=== PATIENT | female | born 1940 | race Caucasian/White ===

== ENCOUNTER 2016-11-09 08:46 | Emergency (ER) | payer OTHER ==
[2016-11-09 08:50] VITALS: BP 128/88; PULSE 86; BMI 27.1
--- NOTE | 2016-11-09 10:03 | PDOC ---
History of Present Illness - General Chief Complaint: Nasal Bleeding Stated Complaint: NOSE BLEED Time Seen by Provider: 11/09/16 08:53 History Source: Patient - History of Present Illness Timing/Duration: reports: this morning Severity: reports: mild Associated Symptoms: reports: nasal congestion. denies: headache Past History - Past Medical History Allergies/Adverse Reactions: Allergies Allergy/AdvReac Type Severity Reaction Status Date / Time Penicillins Allergy Unknown Unverified 11/09/16 08:48 Sulfa (Sulfonamide Allergy Unknown Itching Unverified 11/09/16 08:48 Antibiotics) [Sulfa(Sulfonamide Antibiotics)] Home Medications: Ambulatory Orders Dexlansoprazole [Dexilant] 60 mg PO DAILY 11/09/16 GI Disorders: Yes (gerd) - Immunization History Immunization Up to Date: Yes - Psycho/Social/Smoking Cessation Hx Anxiety: No Suicidal Ideation: No Smoking History: Never smoked Have you smoked in the past 12 months: No Information on smoking cessation initiated: No Hx Alcohol Use: No Drug/Substance Use Hx: No Substance Use Type: None Review of Systems - Review of Systems Constitutional: No: Chills, Fever HEENTM: No: Ear Pain, Throat Pain Respiratory: No: Cough, Shortness of Breath Neurological: No: Headache, Dizziness *Physical Exam - Vital Signs Last Vital Signs Temp Pulse Resp BP Pulse Ox 86 18 128/88 100 11/09/16 08:48 11/09/16 08:48 11/09/16 08:48 11/09/16 08:48 - Physical Exam General Appearance: Yes: Appropriately Dressed. No: Apparent Distress HEENT: positive: Normal Voice, Other (fresh blood in L nares, oropharynx clear) . negative: Scleral Icterus (R), Scleral Icterus (L) Neck: positive: Supple Respiratory/Chest: negative: Respiratory Distress Integumentary: positive: Dry, Warm Neurologic: positive: Fully Oriented, Alert, Normal Mood/Affect Medical Decision Making - Medical Decision Making 11/09/16 10:10 76-year-old female, denies any significant past medical history, here with epistaxis. Patient states she's had "a cold" for about a week and that this a.m. when she blew her nose while on her way to her orthopedics appointment, that she started bleeding suddenly from her left nostril. States bleeding has since resolved with nasal compression and now here for evaluation. Patient well -appearing and stable with fresh blood in left nares but no active bleeding. Patient instructed to hold compression to nasal bridge for 10 minutes and will reassess 11/09/16 10:28 After an hour of observation, there were no epistaxis recurrence. Patient stable for discharge at this time with epistaxis precautions and education on proper epistaxis cessation at home. Also given bacitracin to spply inside of nares 3 times a day for 3 days. Told to return if symptoms recur *DC/Admit/Observation/Transfer Diagnosis at time of Disposition: Epistaxis URI (upper respiratory infection) Qualifiers: URI type: unspecified viral URI Qualified Code(s): J06.9 - Acute upper respiratory infection, unspecified - Discharge Dispostion Disposition: HOME Condition at time of disposition: Improved - Referrals Referrals: Thao Sepulveda MD [Primary Care Provider] - - Patient Instructions Printed Discharge Instructions: Nosebleed Additional Instructions: Apply bacitracin with a cotton tip to inside of the nares bilaterally 3 times a day for the next 3 days. Refrain from blowing or picking your nose. If symptoms reoccur and you are not able to stop bleeding with nasal compression as demonstrated to you in ED, return to the ED
== END 2016-11-09 10:39 | disposition home or self-care (01) ==
LOC: JERFT 08:46
DX: J06.9 Acute upper respiratory infection, unspecified (principal); K21.9 Gastro-esophageal reflux disease without esophagitis
CPT/HCPCS: 99281-25

== ENCOUNTER 2017-07-24 07:25 | Inpatient (IN) | payer OTHER ==
[2017-07-24] MEDS ORDERED: methylPREDNISolone NA SUCC 125 MG/2 ML VIAL IVPUSH ONE (07:41)
--- NOTE | 2017-07-24 07:41 | PDOC ---
History of Present Illness - General Chief Complaint: Tongue Swelling Stated Complaint: MOUTH SWELLING Time Seen by Provider: 07/24/17 07:33 - History of Present Illness Initial Comments: 07/24/17 07:43 Ms. Moreno is a 76 yo female w/ pmh of celiac disease and fibromyalgia who presents with a 2 hour history of tongue tingling and swelling. She reports she started clindamycin 5 days ago for a tooth infection and that she had a root canal yesterday. She is complaining of no other symptoms. The patient denies chest pain, shortness of breath, headache and dizziness. Denies fever, chills, nausea, vomit, diarrhea and constipation. Denies dysuria, frequency, urgency and hematuria. Allergies: Penicillins, sulfa drugs Past History - Past Medical History Allergies/Adverse Reactions: Allergies Allergy/AdvReac Type Severity Reaction Status Date / Time Penicillins Allergy Unknown Verified 07/24/17 08:27 Sulfa (Sulfonamide Allergy Unknown Itching Verified 07/24/17 08:27 Antibiotics) [Sulfa(Sulfonamide Antibiotics)] Home Medications: Ambulatory Orders Clindamycin [Cleocin -] 300 mg PO Q6H 07/24/17 Esomeprazole Magnesium [Nexium 24Hr] 20 mg PO DAILY 07/24/17 COPD: No GI Disorders: Yes (gerd) - Immunization History Immunization Up to Date: Yes - Suicide/Smoking/Psychosocial Hx Smoking History: Never smoked Have you smoked in the past 12 months: No Hx Alcohol Use: No Drug/Substance Use Hx: No Substance Use Type: None Review of Systems - Review of Systems Comments:: 07/24/17 07:45 GENERAL/CONSTITUTIONAL: No fever or chills. No weakness. HEAD, EYES, EARS, NOSE AND THROAT: +Tongue swelling. No change in vision. No ear pain or discharge. No sore throat. CARDIOVASCULAR: No chest pain or shortness of breath RESPIRATORY: No cough, wheezing, or hemoptysis. GASTROINTESTINAL: No nausea, vomiting, diarrhea or constipation. GENITOURINARY: No dysuria, frequency, or change in urination. MUSCULOSKELETAL: No joint or muscle swelling or pain. No neck or back pain. SKIN: No rash NEUROLOGIC: No headache, vertigo, loss of consciousness, or change in strength/ sensation. ENDOCRINE: No increased thirst. No abnormal weight change HEMATOLOGIC/LYMPHATIC: No anemia, easy bleeding, or history of blood clots. ALLERGIC/IMMUNOLOGIC: No hives or skin allergy. *Physical Exam - Vital Signs Last Vital Signs Temp Pulse Resp BP Pulse Ox 97.6 F 85 20 152/77 99 07/24/17 07:28 07/24/17 07:28 07/24/17 07:28 07/24/17 07:28 07/24/17 07:28 - Physical Exam Comments: 07/24/17 07:45 GENERAL: Awake, alert, and fully oriented, in no acute distress HEAD: No signs of trauma, normocephalic, atraumatic EYES: PERRLA, EOMI, sclera anicteric, conjunctiva clear ENT: +Tongue appears swollen on left side. Patient still able to articulate clearly with no difficulty breathing. Auricles normal inspection, hearing grossly normal, nares patent, oropharynx clear without exudates. Moist mucosa NECK: Normal ROM, supple, no lymphadenopathy, JVD, or masses LUNGS: No distress, speaks full sentences, clear to auscultation bilaterally HEART: Regular rate and rhythm, normal S1 and S2, no murmurs, rubs or gallops, peripheral pulses normal and equal bilaterally. ABDOMEN: Soft, nontender, normoactive bowel sounds. No guarding, no rebound. No masses EXTREMITIES: Normal inspection, Normal range of motion, no edema. No clubbing or cyanosis. NEUROLOGICAL: Cranial nerves II through XII grossly intact. Normal speech, normal gait, no focal sensorimotor deficits SKIN: Warm, Dry, normal turgor, no rashes or lesions noted. 07/24/17 08:08 ED Treatment Course - LABORATORY CBC & Chemistry Diagram: 07/24/17 11:02 07/24/17 11:02 Medical Decision Making - Medical Decision Making 07/24/17 11:32 Pt. has angioedema of tongue. On further exam reporting difficulty swallowing. Patient refused FFP as is a protestant. Will admit to ICU for care. 07/24/17 11:39 Discussed pt. w/ PCP. Agrees with admission and would like epinephrin given as well. Will comply. *DC/Admit/Observation/Transfer Diagnosis at time of Disposition: Angioedema Qualifiers: Encounter type: initial encounter Qualified Code(s): T78.3XXA - Angioneurotic edema, initial encounter - Discharge Dispostion Admit: Yes - Referrals Referrals: Thao Sepulveda MD [Primary Care Provider] - - Patient Instructions - Post Discharge Activity
[2017-07-24] MEDS ORDERED: FAMOTIDINE 20 MG/50 ML IVPB 20 MG/50 ML MG IVPB ONE ×2 (07:42→07:45)
[2017-07-24] MEDS ORDERED: methylPREDNISolone NA SUCC 125 MG/2 ML VIAL ONE (07:44)
--- NOTE | 2017-07-24 08:27 | PDOC ---
Attending Attestation - HPI HPI: 07/24/17 08:29 The patient is a 76 year old female with a significant PMH of fibromyalgia and Celiac disease who presents to the emergency department with tongue swelling beginning approximately 2 hours ago. The patient reports she has been taking 150 mg of Clindamycin for a root canal infection which was recently increased to 300 mg about 2 days ago. She reports taking her dose of Clindamycin this morning and subsequently noting left sided tongue swelling shortly after. She reports some difficulty swallowing at presentation. The patient states that she also regularly takes Nexium. Allergies: Penicillins, Sulfonamide antibiotics. Social history: No reported toxic habits. PCP: Dr. Sepulveda - Physicial Exam PE: 07/24/17 08:29 GENERAL: Awake, alert, and fully oriented, in no acute distress HEAD: No signs of trauma EYES: PERRLA, EOMI, sclera anicteric, conjunctiva clear ENT: (+) Edema to the left side of the tongue. No lesions. Uvula midline. Posterior oropharynx clear without exudates and without swelling. Auricles normal inspection, hearing grossly normal, nares patent, Moist mucosa. NECK: Normal ROM, supple, no lymphadenopathy, JVD, or masses LUNGS: Breath sounds equal, clear to auscultation bilaterally. No wheezes, and no crackles HEART: Regular rate and rhythm, normal S1 and S2, no murmurs, rubs or gallops ABDOMEN: Soft, nontender, normoactive bowel sounds. No guarding, no rebound. No masses EXTREMITIES: Normal range of motion, no edema. No clubbing or cyanosis. No cords, erythema, or tenderness NEUROLOGICAL: Cranial nerves II through XII grossly intact. Normal speech. SKIN: Warm, Dry, normal turgor, no rashes or lesions noted. <Scotty Beyer - Last Filed: 07/24/17 08:29> - Resident Resident Name: Gary Vega - ED Attending Attestation I have performed the following: I have examined & evaluated the patient, The case was reviewed & discussed with the resident, I agree w/resident's findings & plan, Exceptions are as noted - Medical Decision Making Pt with angioedema to the left side of the tongue, occurred following increase in clindamycin dose. Will treat with benadryl, steroids, and pepcid. Will monitor airway in ED for 4-6 hrs before deciding on disposition. <Kelli Wesley - Last Filed: 07/24/17 09:50>
[2017-07-24 11:10] LABS: BASOPHIL 0.7 % (0-2.0); EOSINOPHIL 4.3 % (0-4.5); MCH 30.2 pg (25.7-33.7); MEAN CELL VOLUME 91.4 fl (80-96); MEAN PLT VOLUME 7.7 fl (7.5-11.1); PLATELET COUNT 333 K/MM3 (134-434); RDW 13.8 % (11.6-15.6); WHITE BLOOD COUNT 7.1 K/mm3 (4.0-10.0)
[2017-07-24 11:34] LABS: ALBUMIN 3.7 g/dl (3.4-5.0); ANION GAP 7 (8-16); BILIRUBIN,TOTAL 0.3 mg/dL (0.2-1.0); CALCIUM 9.2 mg/dL (8.5-10.1); CO2 30 mmol/L (21-32); CREATININE 0.9 mg/dL (0.55-1.02); GLUCOSE,RANDOM 81 mg/dL (74-106); SGOT/AST 19 U/L (15-37); SGPT/ALT 21 U/L (12-78); TOT PROT 7.2 g/dl (6.4-8.2)
[2017-07-24 11:35] LABS: ALK PHOS 56 U/L (45-117)
[2017-07-24] MEDS ORDERED: EPINEPHrine 1:1,000 0.3 MG/0.3 ML SYR IM ONE (11:35)
[2017-07-24 14:13] VITALS: BMI 28.3
--- NOTE | 2017-07-24 14:39 | CONSULT ---
Consultation: REQUESTING PROVIDER: CONSULT REQUEST: PULM/CC We have been asked to medically evaluate this patient for angioedema. HISTORY OF PRESENT ILLNESS: 76 y/o F with PMH fibromyalgia, GERD, and Celiac disease, who presents to the ED with tingling and erythema of L lateral side of tongue. As per pt, she had a root canal done 2 weeks ago, and completed a 1 week course of clindamycin 150mg qd a week ago. Pt returned to her doctor and was told that she needed a higher dose of medication to clear her gum infection, so her dose of clindamycin was increased to 300mg TID. Pt took her last dose of clinda this morning at 6AM, and thirty minutes later, experienced tingling and swelling on the L lateral side of her tongue. For this reason, pt came to the hospital. Pt had a similar reaction (L sided throat swelling) to cipro a few months prior. She follows with an infrastructure engineer across the street, but does not remember his name. Denies OSWALD, fever, chills, abdominal pain. Pt has an extensive allergy history to guillory, perfumes, scented shampoos. REVIEW OF SYSTEMS: CONSTITUTIONAL: Absent: fever, chills, diaphoresis, generalized weakness, malaise, loss of appetite, weight change HEENT: Absent: rhinorrhea, nasal congestion, throat pain, throat swelling, difficulty swallowing, mouth swelling, ear pain, eye pain, visual changes CARDIOVASCULAR: Absent: chest pain, syncope, palpitations, irregular heart rate, lightheadedness , peripheral edema RESPIRATORY: +mild L sided tongue swelling Absent: cough, shortness of breath, dyspnea with exertion, orthopnea, wheezing, stridor, hemoptysis GASTROINTESTINAL: Absent: abdominal pain, abdominal distension, nausea, vomiting, diarrhea, constipation, melena, hematochezia GENITOURINARY: Absent: dysuria, frequency, urgency, hesitancy, hematuria, flank pain, genital pain MUSCULOSKELETAL: Absent: myalgia, arthralgia, joint swelling, back pain, neck pain SKIN: Absent: rash, itching, pallor HEMATOLOGIC/IMMUNOLOGIC: Absent: easy bleeding, easy bruising, lymphadenopathy, frequent infections ENDOCRINE: Absent: unexplained weight gain, unexplained weight loss, heat intolerance, cold intolerance NEUROLOGIC: Absent: headache, focal weakness or paresthesias, dizziness, unsteady gait, seizure, mental status changes, bladder or bowel incontinence PSYCHIATRIC: Absent: anxiety, depression, suicidal or homicidal ideation, hallucinations. PHYSICAL EXAMINATION Vital Signs - 24 hr 07/24/17 07/24/17 07/24/17 07:28 08:24 12:21 Temperature 97.6 F Pulse Rate 85 Pulse Rate [ 77 106 H Apical] Respiratory 20 14 18 Rate Blood Pressure 152/77 Blood Pressure 145/92 152/81 [Right Arm] O2 Sat by Pulse 99 Oximetry (%) 07/24/17 07/24/17 07/24/17 12:55 12:57 13:20 Temperature 97.8 F 97.8 F 97.7 F Pulse Rate 95 H Pulse Rate [ 106 H Apical] Respiratory 15 24 Rate Blood Pressure 113/67 Blood Pressure 124/71 [Right Arm] O2 Sat by Pulse Oximetry (%) 07/24/17 14:13 Temperature Pulse Rate 95 H Pulse Rate [ Apical] Respiratory 22 Rate Blood Pressure 99/58 Blood Pressure [Right Arm] O2 Sat by Pulse 95 Oximetry (%) GENERAL: Awake, alert, and fully oriented, in no acute distress. on 2L NC 02 HEAD: Normal with no signs of trauma. EYES: Pupils equal, round and reactive to light, extraocular movements intact, sclera anicteric, conjunctiva clear. NECK: Normal range of motion, supple without lymphadenopathy, JVD, or masses. LUNGS: Breath sounds equal, clear to auscultation bilaterally. No wheezes, and no crackles. No accessory muscle use. HEART: Regular rate and rhythm, normal S1 and S2 without murmur, rub or gallop. ABDOMEN: Soft, nontender, not distended, normoactive bowel sounds, no guarding, no rebound, no masses. LOWER EXTREMITIES: 2+ posterior tibial pulses, warm, well-perfused. No calf tenderness. No peripheral edema. NEUROLOGICAL: Cranial nerves II-XII intact. Laboratory Results - last 24 hr 07/24/17 07/24/17 07/24/17 11:02 11:02 11:02 WBC 7.1 RBC 4.15 Hgb 12.5 Hct 37.9 MCV 91.4 MCH 30.2 MCHC 33.0 RDW 13.8 Plt Count 333 MPV 7.7 Neutrophils % 48.0 Lymphocytes % 37.6 Monocytes % 9.4 Eosinophils % 4.3 Basophils % 0.7 Sodium 140 Potassium 4.5 Chloride 103 Carbon Dioxide 30 Anion Gap 7 L BUN 19 H Creatinine 0.9 Creat Clearance w eGFR > 60 Random Glucose 81 Calcium 9.2 Total Bilirubin 0.3 AST 19 ALT 21 Alkaline Phosphatase 56 Total Protein 7.2 Albumin 3.7 Blood Type B POSITIVE Antibody Screen Negative ASSESSMENT/PLAN: 76 y/o F with PMH fibromyalgia, GERD, and Celiac disease, who presents to the ED with tingling and erythema of L lateral side of tongue x this morning. Pt admitted to ICU for continued management. #IMMUNO Angioedema 2/2 clinda allergic reaction -Received Benadryl, epipen, solumedrol 125, Famotidine in ED -Pt currently denies SOB, did not appreciate lateral tongue edema -Placed on solumedrol 40mg IVPB BID prophylactically, Benadryl and pepcid -Most likely 2/2 abx reaction to clindamycin, had similar rxn to cipro in past -F/u speech & swallow consult, to determine pt's diet, avoid aspiration #Prophylaxis -DVT: early ambulation #F/E/N -Monitor electrolytes -Wait for speech & swallow, then decide diet-aspiration precautions #Disposition -Continued management in ICU, for possible transfer tomorrow if continues to improve Dispo: We will continue to follow the patient. Thank you for this consultative opportunity. Visit type - Emergency Visit Emergency Visit: No - New Patient This patient is new to me today: Yes Date on this admission: 07/24/17 - Critical Care Critical Care patient: Yes Total Critical Care Time (in minutes): 42 Critical Care Statement: The care of this patient involved high complexity decision making to prevent further life threatening deterioration of the patient 's condition and/or to evaluate & treat vital organ system(s) failure or risk of failure.
--- NOTE | 2017-07-24 15:28 | CONSULT ---
Admitting History and Physical - Admission History of Present Illness: 76 y/o F with PMH fibromyalgia, GERD, and Celiac disease, who presents to the ED with tingling and erythema of L lateral side of tongue x this morning. Pt admitted to ICU for continued management. History Source: Patient, Medical Record Limitations to Obtaining History: No Limitations - Smoking History Smoking history: Never smoked Have you smoked in the past 12 months: No - Alcohol/Substance Use Hx Alcohol Use: No History - Admission Reason For Visit: ANGIOEDEMA - Diagnostics X-ray: Report Reviewed - General Mental Status: Alert and Oriented, Awake and Alert, Able to Follow Commands Attention: Intact Ability to Follow Directions: Excellent Head/Neck Control: WFL - Hearing Hearing: Normal Speech Evaluation - Communication Primary Language: AMHARIC Communication: Yes: Within Normal Limits Oral Expression Ability: Yes: No Impairment - Speech Production Able to Make Needs Known: Yes: WNL Intelligibility: Yes: WNL - Speech Characteristics Voice Loudness: Normal Voice Pitch: Yes: Normal Voice Phonatory-based Quality: Yes: Normal Speech Pattern: Normal Speech Clarity: < 100% Nasal Resonance: Normal Articulation: Yes: Precise Rate of Speech: Intact - Language/Auditory Comprehension Follows: Yes: Complex Commands - Language/Verbal Expression Able to Respond to Simple Queries: Yes: WNL Able to Communicate Wants and Needs: Yes: WNL Functional Communication Status: Yes: WNL Attention: Yes: Intact - 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 Memory: Yes: WNL Short Term Memory: Yes: WNL - Swallow Evaluation/Bedside Assessment Current Nutritional Intake: NPO Oral Secretions: Yes: WFL Dentition: Yes: Adequate Facial Symmetry at Rest: Symmetrical Facial Symmetry on Retraction: Symmetrical Facial Movement: Controlled Sensation: Normal Against Resistance Opening: Normal Against Resistance Closing: Normal Pucker Lips: Normal Smile: Normal Lingual Movement: Normal, Symmetric Lingual Speed of Movement: Normal Lingual Movement Strgth Against Opposition: Normal Lingual Movement Characteristics: Normal Velopharyngeal Movement: Normal Laryngeal Elevation: WFL Laryngeal Movement: Able to Palpate Rate of Intake: WFL Bolus Size: WFL Labial Seal: WFL Chewing: WFL Oral Prep Time: WFL A-P Transit: WFL Pocketing: None Timing of Swallow: WFL Coughing/Throat Clear: No Change in Voice: No Recommendations - Speech Evaluation, Impression/Plan Impression: Left tongue swelling overtly resolved. Speech and swallowing back to baseline. Pt reports cough from reflux. She is on a strictly Gluten-free ( Celiac disease)diet with GERD precautions. - Dysphagia Impressions/Plan Swallowing Skills: WFL Recommendations: Other (HOB elevated for 1 hour after meals and avoid PO intake for 2-3 hours before bedtime. Monitor PO tolerance.) - Recommendations Diet Consistency: Regular (Gluten-free. Avoid caffiene, carbonation, citrus, tomatoes, onions, peppers.) Liquids: Thin Liquids
[2017-07-24] MEDS ORDERED: diphenhydrAMINE HCL 25 MG CAPSULE (FP) PO PRN (15:34)
[2017-07-24] MEDS: methylPREDNISolone NA SUCC 125 MG/2 ML VIAL IVPUSH SCH ×2 (16:24→21:42)
[2017-07-24] MEDS: MUPIROCIN 2% TOPICAL OINTMENT FOR DECOLONIZATION NS SCH (21:42)
--- NOTE | 2017-07-24 21:56 | CONSULT ---
Consult Consult Specialty:: Pulm/CCM Reason for Consultation:: angioedema - History of Present Illness Chief Complaint: tongue swelling History of Present Illness: 76 yo woman PMH: GERD, fibromyalgia and celiac disease who presented to ED with acute onset tongue swelling in the setting of recent clindamycin dose. Patient had been in her usual state of health until ~ 1 week ago she developed tooth pain and had a root canal. Post procedure she had significant gingivitis and was placed on clindamycin 150mg qid for 7 days. She still has significant irritation of the gums and her dentist increased the dose to clinda 300mg qid. The morning of admission she took her dose of medication and developed acute left sided tongue swelling and presented to ED. She denies CP/SOB/OSWALD/blurry vision/wheeze/rash/sick contact. In ED she was treated with steroids/H2B/ benadryl and EPI pen. Patient admitted to ICU for observation of airway. In ICU patient awake, alert without distress. On exam no swelling noted. Patient report to be back at baseline. - History Source History Provided By: Patient Limitations to Obtaining History: No Limitations - Past Medical History Gastrointestinal: Yes: GERD, Other (celiac disease ) Heme/Onc: Yes: Current Chemotherapy Rheumatology: Yes: Fibromyalgia - Alcohol/Substance Use Hx Alcohol Use: No - Smoking History Smoking history: Never smoked Have you smoked in the past 12 months: No Home Medications - Allergies Allergies/Adverse Reactions: Allergies Allergy/AdvReac Type Severity Reaction Status Date / Time clindamycin Allergy Severe Swelling Verified 07/24/17 21:29 Penicillins Allergy Unknown Verified 07/24/17 08:27 Sulfa (Sulfonamide Allergy Unknown Itching Verified 07/24/17 08:27 Antibiotics) [Sulfa(Sulfonamide Antibiotics)] - Home Medications Home Medications: Ambulatory Orders Clindamycin [Cleocin -] 300 mg PO Q6H 07/24/17 Esomeprazole Magnesium [Nexium 24Hr] 20 mg PO DAILY 07/24/17 Family Disease History - Family Disease History Family History: Unremarkable Review of Systems - Review of Systems Constitutional: reports: No Symptoms HENT: reports: Difficult Swallowing, Mouth Swelling Cardiovascular: reports: No Symptoms Respiratory: reports: No Symptoms Gastrointestinal: reports: No Symptoms Physical Exam Vital Signs: Vital Signs Temperature 98.9 F 07/24/17 18:00 Pulse Rate 83 07/24/17 20:00 Respiratory Rate 16 11/22/17 20:00 Blood Pressure 104/61 07/24/17 20:00 O2 Sat by Pulse Oximetry (%) 92 L 07/24/17 19:58 Current Medications Chlorhexidine Gluconate (Hibiclens For Decolonization -) 1 applic TP HS SARA Last Admin: 07/24/17 21:42 Dose: 1 applic Diphenhydramine HCl (Benadryl -) 25 mg PO HS PRN PRN Reason: INSOMNIA Last Admin: 07/24/17 21:42 Dose: 25 mg Famotidine/Sodium Chloride (Pepcid 20 Mg Premixed Ivpb -) 20 mg in 50 mls @ 100 mls/hr IVPB DAILY SARA Methylprednisolone Sodium Succinate (Solu-Medrol -) 40 mg IVPUSH BID SARA Last Admin: 07/24/17 21:42 Dose: 40 mg Mupirocin (Bactroban Ointment (For Decolonization) -) 1 applic NS BID SARA Stop: 07/29/17 21:59 Last Admin: 07/24/17 21:42 Dose: 1 applic Constitutional: Yes: Calm Eyes: Yes: EOM Intact HENT: Yes: Normocephalic Neck: Yes: Trachea Midline Cardiovascular: Yes: Regular Rate and Rhythm Respiratory: Yes: CTA Bilaterally Gastrointestinal: Yes: Normal Bowel Sounds, Soft Edema: No Neurological: Yes: Alert, Oriented Labs: CBC, BMP 07/24/17 11:02 07/24/17 11:02 Imaging - Results Chest X-ray: Report Reviewed, Image Reviewed Problem List - Problems (1) Angioedema Code(s): T78.3XXA - ANGIONEUROTIC EDEMA, INITIAL ENCOUNTER Qualifiers: Encounter type: initial encounter Qualified Code(s): T78.3XXA - Angioneurotic edema, initial encounter Assessment/Plan a/p: 76 yo woman with acute tongue edema after clindamycin dose c/w angioedema/ allergic reaction -cont steroids/H2B/H1B -incentive chente -DVT prophylaxis Boerem ACNP Pulm/CCM CCT: 35m
[2017-07-24] MEDS ORDERED: CHLORHEXIDINE GLUCONATE 4% CLEANSER FOR DECOLONIZATION TP SCH (22:00)
[2017-07-25 06:34] VITALS: TEMP 98.7
[2017-07-25 07:07] LABS: BASOPHIL 0.1 % (0-2.0); MCH 30.3 pg (25.7-33.7); MCHC 33.5 g/dl (32.0-36.0); MEAN CELL VOLUME 90.5 fl (80-96); MEAN PLT VOLUME 7.8 fl (7.5-11.1); NEUTROPHILS 88.1 % (42.8-82.8); PLATELET COUNT 336 K/MM3 (134-434); RDW 13.9 % (11.6-15.6); WHITE BLOOD COUNT 18.5 K/mm3 (4.0-10.0)
[2017-07-25 07:08] LABS: ANION GAP 9 (8-16); CALCIUM 9.1 mg/dL (8.5-10.1); CO2 26 mmol/L (21-32); GLUCOSE,RANDOM 136 mg/dL (74-106); MAGNESIUM 2.2 mg/dL (1.8-2.4); PHOSPHOROUS 3.8 mg/dL (2.5-4.9)
[2017-07-25 09:43] VITALS: BP 115/95; PULSE 88
[2017-07-25] MEDS ORDERED: FAMOTIDINE 20 MG/50 ML IVPB 20 MG/50 ML MG IVPB SCH (10:00)
[2017-07-25] MEDS ORDERED: ACETAMINOPHEN 325 MG TABLET (FP) ONE (11:13)
--- NOTE | 2017-07-25 11:17 | DS ---
Physical Examination Vital Signs: Vital Signs Temperature 98.7 F 07/25/17 06:00 Pulse Rate 88 07/25/17 08:00 Respiratory Rate 21 07/25/17 09:00 Blood Pressure 115/95 07/25/17 08:00 O2 Sat by Pulse Oximetry (%) 94 L 07/25/17 09:00 Findings/Remarks: Admitted with angio edema Feels better ,no complaints Constitutional: Yes: No Distress Eyes: Yes: WNL HENT: Yes: WNL Neck: Yes: WNL Cardiovascular: Yes: WNL Respiratory: Yes: WNL Gastrointestinal: Yes: WNL ...Rectal Exam: Yes: Deferred Renal/: Yes: WNL Breast(s): Yes: WNL Edema: No Neurological: Yes: Alert Labs: CBC, BMP 07/25/17 05:35 07/25/17 05:35 Discharge Summary Reason For Visit: ANGIOEDEMA Current Active Problems Angioedema (Acute) - Instructions Referrals: Thao Sepulveda MD [Primary Care Provider] - - Home Medications Comprehensive Discharge Medication List: Ambulatory Orders Clindamycin [Cleocin -] 300 mg PO Q6H 07/24/17 Esomeprazole Magnesium [Nexium 24Hr] 20 mg PO DAILY 07/24/17
--- NOTE | 2017-07-25 11:38 | HP ---
DATE OF ADMISSION: 07/24/2017 This is a 76-year-old female, known to me for many years, diagnosed to have fibromyalgia, celiac disease, came to the emergency room with swelling of the tongue and difficulty in breathing. She was taking clindamycin for her tooth infection. In the emergency room, she got Claritin, there was no relief, after epinephrine was given. After getting epinephrine, she had relief for her symptoms. Then she was admitted to the ICU. I saw her in the ICU. PHYSICAL EXAMINATION: Vital Signs: BP 130/80, pulse 72, respiration 20, temperature 98. HEENT: Unremarkable. Face: Minimal swelling, angioedema on the left side. Lungs: Clear. Heart: S1, S2 normal. No S3, S4. Abdomen: Soft, nontender. Extremities: No edema. Neurological: Grossly normal. Labs are okay. X-ray of chest okay. EKG: Normal sinus rhythm. IMPRESSION: Angioedema, allergic reaction, probably allergic to clindamycin. Patient is admitted to ICU for observation. Vicente [id number]
[2017-07-25] MEDS: MUPIROCIN 2% TOPICAL OINTMENT FOR DECOLONIZATION NS SCH (11:39)
--- NOTE | 2017-07-25 12:37 | PN ---
Teaching Attending Note Name of Resident: Claudine Gee ATTENDING PHYSICIAN STATEMENT I saw and evaluated the patient. I reviewed the resident's note and discussed the case with the resident. I agree with the resident's findings and plan as documented. SUBJECTIVE: Feels overall better today. Feels that her tongue is back to baseline. No rash, itching, drooling, etc. Intake & Output 07/22/17 07/23/17 07/24/17 07/25/17 23:59 23:59 23:59 23:59 Intake Total 480 Balance 480 Weight 145 lb Last Vital Signs Temp Pulse Resp BP Pulse Ox 98.7 F 88 21 115/95 94 L 07/25/17 06:00 07/25/17 08:00 07/25/17 09:00 07/25/17 08:00 07/25/17 09:00 Constitutional: Yes: Awake and alert, NAD Eyes: Yes: EOM Intact HENT: Yes: Normocephalic Neck: Yes: Trachea Midline Cardiovascular: Yes: Regular Rate and Rhythm Respiratory: Yes: CTA Bilaterally Gastrointestinal: Yes: Normal Bowel Sounds, Soft Edema: No Neurological: Yes: Alert, Oriented Labs: Laboratory Results - last 24 hr 07/24/17 07/25/17 07/25/17 14:25 05:35 05:35 WBC 18.5 H D RBC 3.93 Hgb 11.9 Hct 35.6 MCV 90.5 MCH 30.3 MCHC 33.5 RDW 13.9 Plt Count 336 MPV 7.8 Neutrophils % 88.1 H D Lymphocytes % 8.5 D Monocytes % 3.3 L Eosinophils % 0.0 D Basophils % 0.1 Sodium 139 Potassium 4.7 Chloride 104 Carbon Dioxide 26 Anion Gap 9 BUN 23 H D Creatinine 1.0 Random Glucose 136 H D Calcium 9.1 Phosphorus 3.8 Magnesium 2.2 Blood Type B POSITIVE - Problems (1) Angioedema Code(s): T78.3XXA - ANGIONEUROTIC EDEMA, INITIAL ENCOUNTER Qualifiers: Encounter type: initial encounter Qualified Code(s): T78.3XXA - Angioneurotic edema, initial encounter Assessment/Plan Overall better -> D/C planning Dr Fontenot
--- NOTE | 2017-07-25 12:38 | PN ---
Physical Exam: SUBJECTIVE: Patient seen and examined at bedside. 24 hr events -None, pt started back on diet -No issues Today -Pt discharged home -no issues, denies SOB or angioedema, rash, drooling, etc. OBJECTIVE: Vital Signs Period Temp Pulse Resp BP Sys/Sanz Pulse Ox Last 24 Hr 97.7 F-99.1 F 66-106 13-24 90-124/55-95 92-97 GENERAL: The patient is awake, alert, and fully oriented, in no acute distress. HEAD: Normal with no signs of trauma. EYES: PERRL, extraocular movements intact, sclera anicteric, conjunctiva clear. ENT: Ears normal, nares patent, oropharynx clear without exudates, moist mucous membranes. NECK: Trachea midline, supple. LUNGS: Breath sounds equal, clear to auscultation bilaterally, no wheezes, no crackles, no accessory muscle use. HEART: Regular rate and rhythm, S1, S2 without murmur, rub or gallop. ABDOMEN: Soft, nontender, nondistended, normoactive bowel sounds, no guarding, no rebound EXTREMITIES: 2+ posterior tibial pulses, warm, well-perfused, no edema. NEUROLOGICAL: Cranial nerves II through XII grossly intact. Laboratory Results - last 24 hr 07/24/17 07/25/17 07/25/17 14:25 05:35 05:35 WBC 18.5 H D RBC 3.93 Hgb 11.9 Hct 35.6 MCV 90.5 MCH 30.3 MCHC 33.5 RDW 13.9 Plt Count 336 MPV 7.8 Neutrophils % 88.1 H D Lymphocytes % 8.5 D Monocytes % 3.3 L Eosinophils % 0.0 D Basophils % 0.1 Sodium 139 Potassium 4.7 Chloride 104 Carbon Dioxide 26 Anion Gap 9 BUN 23 H D Creatinine 1.0 Random Glucose 136 H D Calcium 9.1 Phosphorus 3.8 Magnesium 2.2 Blood Type B POSITIVE ASSESSMENT/PLAN: 76 y/o F with PMH fibromyalgia, GERD, and Celiac disease, who presents to the ED with tingling and erythema of L lateral side of tongue x this morning. Pt admitted to ICU for continued management. #IMMUNO Angioedema 2/2 clinda allergic reaction -Received Benadryl, epipen, solumedrol 125, Famotidine in ED -Was on solumedrol 40mg IVPB BID prophylactically, Benadryl and pepcid while in unit -today no complaints, denies SOB, drooling, rash, etc. #Disposition -has been d/c home -will F/u with Dr. Milton Visit type - Emergency Visit Emergency Visit: No - New Patient This patient is new to me today: No - Critical Care Critical Care patient: Yes Total Critical Care Time (in minutes): 30 Critical Care Statement: The care of this patient involved high complexity decision making to prevent further life threatening deterioration of the patient 's condition and/or to evaluate & treat vital organ system(s) failure or risk of failure.
--- NOTE | 2017-07-25 21:43 | EKG ---
Test Reason : Blood Pressure : / mmHG Vent. Rate : 090 BPM Atrial Rate : 090 BPM P-R Int : 158 ms QRS Dur : 102 ms QT Int : 358 ms P-R-T Axes : 060 -46 058 degrees QTc Int : 437 ms NORMAL SINUS RHYTHM INCOMPLETE RIGHT BUNDLE BRANCH BLOCK LEFT ANTERIOR FASCICULAR BLOCK POSSIBLE ANTEROLATERAL INFARCT , AGE UNDETERMINED ABNORMAL ECG WHEN COMPARED WITH ECG OF 14-JAN-2006 09:44, INCOMPLETE RIGHT BUNDLE BRANCH BLOCK IS NOW PRESENT BORDERLINE CRITERIA FOR ANTERIOR INFARCT ARE NOW PRESENT BORDERLINE CRITERIA FOR ANTEROLATERAL INFARCT ARE NOW PRESENT Confirmed by ABY CUENCA MD ([id number]) on 07/25/2017 9:43:29 PM Referred By: Confirmed By:ABY CUENCA MD
== END 2017-07-25 12:23 | disposition home or self-care (01) | DRG 916 ==
LOC: JER 07:25 → JERBED 11:59 → JICU 13:22
PROVIDERS: ADMIT Internal Medicine; ATTEND Internal Medicine
DX: T78.3XXA Angioneurotic edema, initial encounter (principal); K21.9 Gastro-esophageal reflux disease without esophagitis; M79.7 Fibromyalgia; K90.0 Celiac disease; T36.8X5A Adverse effect of other systemic antibiotics, initial encounter
CPT/HCPCS: 36415; 71010-TC; 80048; 80053; 83735; 84100; 85025; 86850; 86900; 86901; 93005; 93010; 99284-25

== ENCOUNTER 2017-07-28 09:37 | Emergency (ER) | payer OTHER ==
[2017-07-28 09:48] VITALS: BP 142/81; PULSE 79; TEMP 97.7; BMI 26.5
[2017-07-28] MEDS ORDERED: DEXAMETHASONE SOD PHOSPHATE 10 MG/1 ML VIAL IM ONE (10:42)
[2017-07-28] MEDS ORDERED: RANITIDINE HCL 150 MG TABLET (FP) PO ONE (10:42)
[2017-07-28] MEDS ORDERED: DEXAMETHASONE SOD PHOSPHATE 10 MG/1 ML VIAL ONE (10:44)
[2017-07-28] MEDS ORDERED: RANITIDINE HCL 150 MG TABLET (FP) ONE (10:44)
--- NOTE | 2017-07-28 10:48 | PDOC ---
History of Present Illness - General Chief Complaint: Allergic Reaction Stated Complaint: ALLERGIC REACTION Time Seen by Provider: 07/28/17 10:13 History Source: Patient Exam Limitations: No Limitations - History of Present Illness Initial Comments: 07/28/17 10:42 Patient was discharged 3 days ago status post ICU admission for angioedema/ anaphylaxis from clindamycin. States received multiple medications including steroids and epinephrine with resolution. States this morning had some dental issue, used some tincture of iodine and fluconazole spray and had a recurrence of swelling to the left side of her face and nose. Patient denies tongue swelling, breathing problems, any airway issue and is not nearly severe as most recent incident, but was concerned about facial swelling. States was prescribed EpiPen but did not use. Denies fever, ear or throat pain, any shortness of breath or cough. Timing/Duration: reports: just prior to arrival Severity: reports: moderate Associated Symptoms: reports: nasal congestion. denies: cough, fever/chills, headache Past History - Travel Traveled outside of the country in the last 30 days: No Close contact w/someone who was outside of country & ill: No - Past Medical History Allergies/Adverse Reactions: Allergies Allergy/AdvReac Type Severity Reaction Status Date / Time clindamycin Allergy Severe Swelling Verified 07/28/17 09:43 Penicillins Allergy Unknown Verified 07/28/17 09:43 Sulfa (Sulfonamide Allergy Unknown Itching Verified 07/28/17 09:43 Antibiotics) [Sulfa(Sulfonamide Antibiotics)] Home Medications: Ambulatory Orders NK [No Known Home Medication] 07/28/17 COPD: No GI Disorders: Yes (gerd) - Immunization History Immunization Up to Date: Yes - Suicide/Smoking/Psychosocial Hx Smoking History: Never smoked Have you smoked in the past 12 months: No Information on smoking cessation initiated: No Hx Alcohol Use: No Drug/Substance Use Hx: No Substance Use Type: None Hx Substance Use Treatment: No Review of Systems - Review of Systems Able to Perform ROS?: Yes Is the patient limited [place]ian proficient: Yes Constitutional: Yes: Symptoms Reported, See HPI, Malaise. No: Fever HEENTM: Yes: Symptoms Reported, See HPI, Nose Congestion, Mouth Swelling, Other (facial swelling/ left lip/ naspolabial fold ). No: Difficulty Swallowing Respiratory: Yes: See HPI. No: Symptoms reported, Cough, Shortness of Breath, Stridor, Wheezing Integumentary: Yes: Symptoms Reported Neurological: Yes: Symptoms reported All Other Systems: Reviewed and Negative *Physical Exam - Vital Signs Last Vital Signs Temp Pulse Resp BP Pulse Ox 97.7 F 79 16 142/81 99 07/28/17 09:44 07/28/17 09:44 07/28/17 09:44 07/28/17 09:44 07/28/17 09:44 - Physical Exam General Appearance: Yes: Nourished, Appropriately Dressed, Apparent Distress, Mild Distress HEENT: positive: CATINA, TMs Normal, Pharynx Normal, Other (swelling to left upper lip/ extending into nasal crease/cheek. ). negative: Muffled/Hoarse voice (no sqwellign to tongue/ pharynx/ airway patent), Tonsillar Exudate, Nasal Congestion, Rhinorrhea, Sinus Tenderness Neck: positive: Supple. negative: Tender, Lymphadenopathy (R), Lymphadenopathy (L) Respiratory/Chest: positive: Lungs Clear, Normal Breath Sounds. negative: Respiratory Distress, Stridor, Wheezing Cardiovascular: positive: Regular Rhythm Gastrointestinal/Abdominal: positive: Normal Bowel Sounds, Soft. 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 Will observe for resolution/. Medical Decision Making - Medical Decision Making 07/28/17 12:05 Patient states feels much improved, swelling to face lessened although is still present. Airway is clear and breathing is unlabored. Is ready for discharge *DC/Admit/Observation/Transfer Diagnosis at time of Disposition: Angioedema Qualifiers: Encounter type: subsequent encounter Qualified Code(s): T78.3XXD - Angioneurotic edema, subsequent encounter - Discharge Dispostion Disposition: HOME Condition at time of disposition: Stable Admit: No - Referrals Referrals: Thao Sepulveda MD [Primary Care Provider] - Venancio Watson MD [Staff Physician] - - Patient Instructions Additional Instructions: Rest, drink lots of fluids: Teas, water, soups Saltwater gargles. Consider humidifier in room at night Steamy showers/seem to face break up mucus Avoid contact with allergens, exposure to pollens, close windows on a windy day Lots of handwashing and good hygiene Continue antihistamines daily until pollen season is over; Zyrtec, Claritin, Nika during the daytime and Benadryl at nighttime as will make sleepy Tylenol or Motrin for fever and pain Continue Zantac, Pepcid, or Tagamet 2 tablets every 12 hours for the next 2 days Prednisone 40 mg daily for the next 4 days Followup with private physician in one to 2 days Consider following up with an manager audio/battery mechanic for skin testing and possible allergy shots Return to emergency department for worsened symptoms, fevers, dehydration - Post Discharge Activity Forms/Work/School Notes: Back to Work
== END 2017-07-28 12:27 | disposition home or self-care (01) ==
LOC: JERFT 09:37
PROC: 3E0233Z Introduction of Anti-inflammatory into Muscle, Percutaneous Approach (ICD-10-PCS; principal; 2017-07-28)
DX: T78.3XXA Angioneurotic edema, initial encounter (principal); T78.49XA Other allergy, initial encounter
CPT/HCPCS: 96372; 99281-25

== ENCOUNTER 2017-08-26 05:15 | Emergency (ER) | payer OTHER ==
[2017-08-26] MEDS ORDERED: methylPREDNISolone NA SUCC 125 MG/2 ML VIAL IVPUSH ONE (07:26)
--- NOTE | 2017-08-26 07:26 | PDOC ---
*Physical Exam - Vital Signs Last Vital Signs Temp Pulse Resp BP Pulse Ox 97.9 F 77 19 148/86 98 08/26/17 07:00 08/26/17 07:00 08/26/17 07:00 08/26/17 07:00 08/26/17 07:00 ED Treatment Course - LABORATORY CBC & Chemistry Diagram: 08/26/17 08:09 08/26/17 08:09 Medical Decision Making - Medical Decision Making 08/26/17 10:19 Pt reassessed. Throat is normal in appearance, uvula midline. No rashes or oral lesions. Stable for DC home. *DC/Admit/Observation/Transfer Diagnosis at time of Disposition: Allergic reaction - Discharge Dispostion Disposition: HOME Condition at time of disposition: Improved Admit: No - Prescriptions Prescriptions: Prednisone [Deltasone -] 40 mg PO DAILY #8 tablet - Referrals Referrals: Thao Sepulveda MD [Primary Care Provider] - - Patient Instructions Printed Discharge Instructions: DI for General Allergic Reactions - Post Discharge Activity
[2017-08-26 07:27] VITALS: PULSE 77; TEMP 97.9; BMI 26.2
--- NOTE | 2017-08-26 07:27 | PDOC ---
History of Present Illness - General Chief Complaint: Dysphagia Stated Complaint: DIFFICULTY SWALLOWING (LUMP) Time Seen by Provider: 08/26/17 06:28 - History of Present Illness Initial Comments: 08/26/17 07:51 "The patient is a 76 year old female, with a significant past medical history of fibromyalgia and celiac disease, who presents to the emergency department with sore throat and "lump in throat". The patient states that upon waking up this morning she experienced trouble swallowing. She reports associated symptoms of nasal congestion and cold-like symptoms that have been persistent for approx. one week. Pt states that she has been having intermittent allergic reactions that typically involve swelling of her face or tongue. She has seen an childbirth educator, but they have not been able to determine the cause of her reactions. Pt was previously admitted to ICU for angioedema/anaphylaxis from clindamycin. Pt currently denies any SOB, denies tongue swelling, denies voice changes. She denies recent fevers, chills, headache or dizziness. She denies recent nausea, vomit, diarrhea or constipation. She denies recent dysuria, frequency, urgency or hematuria. She denies recent chest pain or shortness of breath. Allergies: See Nursing notes. Primary Care Physician: Dr. Sepulveda " Past History - Past Medical History Allergies/Adverse Reactions: Allergies Allergy/AdvReac Type Severity Reaction Status Date / Time clindamycin Allergy Severe Swelling Verified 08/26/17 07:08 Penicillins Allergy Unknown Verified 08/26/17 07:08 Sulfa (Sulfonamide Allergy Unknown Itching Verified 08/26/17 07:08 Antibiotics) [Sulfa(Sulfonamide Antibiotics)] Home Medications: Ambulatory Orders Prednisone [Deltasone] 20 mg PO BID #8 tablet 07/28/17 COPD: No GI Disorders: Yes (gerd) - Immunization History Immunization Up to Date: Yes - Suicide/Smoking/Psychosocial Hx Smoking History: Never smoked Have you smoked in the past 12 months: No Information on smoking cessation initiated: No Hx Alcohol Use: No Drug/Substance Use Hx: No Substance Use Type: None Hx Substance Use Treatment: No Review of Systems - Review of Systems Comments:: 08/26/17 07:53 "GENERAL/CONSTITUTIONAL: No fever or chills. No weakness. HEAD, EYES, EARS, NOSE AND THROAT: +Nasal congestion, lump in throat. No change in vision. No ear pain or discharge. No sore throat. CARDIOVASCULAR: No chest pain or shortness of breath. RESPIRATORY: No cough, wheezing, or hemoptysis. GASTROINTESTINAL: No nausea, vomiting, diarrhea or constipation. GENITOURINARY: No dysuria, frequency, or change in urination. MUSCULOSKELETAL: No joint or muscle swelling or pain. No neck or back pain. SKIN: No rash NEUROLOGIC: No headache, vertigo, loss of consciousness, or change in strength/ sensation. ENDOCRINE: No increased thirst. No abnormal weight change. HEMATOLOGIC/LYMPHATIC: No anemia, easy bleeding, or history of blood clots. ALLERGIC/IMMUNOLOGIC: No hives or skin allergy. " *Physical Exam - Vital Signs Last Vital Signs Temp Pulse Resp BP Pulse Ox 97.9 F 77 19 148/86 98 08/26/17 07:00 08/26/17 07:00 08/26/17 07:00 08/26/17 07:00 08/26/17 07:00 - Physical Exam Comments: 08/26/17 07:53 "GENERAL: Awake, alert, and fully oriented, in no acute distress HEAD: No signs of trauma EYES: PERRLA, EOMI, sclera anicteric, conjunctiva clear ENT: + uvula swelling with mild deviation towards left, no tongue or lip swelling NECK: Nontender, no stepoffs, Normal ROM, supple, no lymphadenopathy, JVD, or masses LUNGS: Breath sounds equal, clear to auscultation bilaterally. No wheezes, and no crackles, no stridor HEART: Regular rate and rhythm, normal S1 and S2, no murmurs, rubs or gallops ABDOMEN: Soft, nontender, normoactive bowel sounds. No guarding, no rebound. No masses EXTREMITIES: Normal range of motion, no edema. No clubbing or cyanosis. No cords, erythema, or tenderness NEUROLOGICAL: Cranial nerves II through XII intact. 5/5 strength and sensation in all extremities, Normal speech, normal gait SKIN: Warm, Dry, normal turgor, no rashes or lesions noted." Medical Decision Making - Medical Decision Making 08/26/17 07:54 76 F with "lump in throat" and found to have swelling to uvula, possibly 2/2 allergic reaction. No fluctuant neck masses or purulent drainage to suggest abscess. No stridor on exam, no evidence of imminent airway obstruction. - Steroids, benadryl - Reassess *DC/Admit/Observation/Transfer - Discharge Dispostion Condition at time of disposition: Fair - Referrals Referrals: Thao Sepulveda MD [Primary Care Provider] - - Patient Instructions - Post Discharge Activity
[2017-08-26] MEDS ORDERED: methylPREDNISolone NA SUCC 125 MG/2 ML VIAL ONE (07:59)
[2017-08-26] MEDS ORDERED: FAMOTIDINE 20 MG/50 ML IVPB 20 MG/50 ML MG IVPB ONE (08:00)
[2017-08-26 08:31] LABS: BASO % 0.6 % (0-2.0); EOS # 0.2 # (0-4.5); EOS % 2.3 % (0-4.5); MCH 30.1 pg (25.7-33.7); MCHC 32.7 g/dl (32.0-36.0); MEAN PLT VOLUME 7.5 fl (7.5-11.1); MONO # 0.6 # (3.8-10.2); NEUT # 5.3 # (42.8-82.8); NEUT % 74.8 % (42.8-82.8); PLATELET COUNT 299 K/MM3 (134-434); RDW 14.5 % (11.6-15.6); WHITE BLOOD COUNT 7.1 K/mm3 (4.0-10.0)
[2017-08-26] MEDS ORDERED: FAMOTIDINE IV 20 MG/12 ML VIAL IVPUSH ONE (08:36)
[2017-08-26 09:25] LABS: ALBUMIN 3.8 g/dl (3.4-5.0); ALK PHOS 47 U/L (45-117); ANION GAP 8 (8-16); BILIRUBIN,TOTAL 0.3 mg/dL (0.2-1.0); CO2 26 mmol/L (21-32); CREATININE 0.9 mg/dL (0.55-1.02); GLUCOSE,RANDOM 89 mg/dL (74-106); SGOT/AST 18 U/L (15-37); SGPT/ALT 28 U/L (12-78)
[2017-08-26] MEDS ORDERED: FAMOTIDINE IV 20 MG/12 ML VIAL IVPUSH SCH (10:00)
[2017-08-26 10:39] VITALS: BP 138/87
== END 2017-08-26 10:39 | disposition home or self-care (01) ==
LOC: JER 05:15
PROC: 3E033GC Introduction of Other Therapeutic Substance into Peripheral Vein, Percutaneous Approach (ICD-10-PCS; principal; 2017-08-26)
DX: T78.40XA Allergy, unspecified, initial encounter (principal); M79.7 Fibromyalgia; K90.0 Celiac disease; K21.9 Gastro-esophageal reflux disease without esophagitis
CPT/HCPCS: 36415; 80053; 85025; 96365; 96375; 99284-25

== ENCOUNTER 2017-09-13 08:35 | Emergency (ER) | payer OTHER ==
[2017-09-13 08:46] VITALS: BP 130/95; TEMP 97.8; BMI 24.5
--- NOTE | 2017-09-13 10:29 | PDOC ---
Attending Attestation - Resident Resident Name: Dirk Smallel - ED Attending Attestation I have performed the following: I have examined & evaluated the patient, The case was reviewed & discussed with the resident, I agree w/resident's findings & plan, Exceptions are as noted - HPI HPI: 09/13/17 10:26 76y F hx of fibromyalgia, ?alleergic reactions/angioedema, presents with complaint of sore throat and a lump in her throat for 17 days. She noted some inclreased congestion and fullness in her ears - as well as felt sob today that brought her to the ED today. pt feels that it may be the congestion that resulted in her sob - she deneis any cp, cough, zneezing, f/c, chets tightness, back pain, neck pain, numbness/tingling/weakness, extremity swelling., [place]. on exam the pt general: no acute distress, no respiratory distress, speaking complete sentences ENT: mild erythema in posterior pharynx w/o edema, symmetric, no fullness, normal voice, no stridor Lungs CTA b/l card: rrr, no m/r/g - Physicial Exam PE: 09/13/17 10:58 see above - Medical Decision Making 09/13/17 10:59 suspect the pts sypmtoms may be secondary to her congestion will ck labs to ru anemia, metabolic derangement will give her benadryl for sypmtomatic relief no signs of angioedema Heart Score/ECG Review - ECG Impressions Comment:: 09/13/17 12:37 Twelve-lead EKG was performed and reviewed by me. There is normal sinus rhythm with a normal rate. Left axis deviation The intervals are normal. There is normal R wave progression There are no ST or T wave abnormalities.
--- NOTE | 2017-09-13 10:33 | PDOC ---
History of Present Illness - General Chief Complaint: Shortness of Breath Stated Complaint: Shortness of Breath Time Seen by Provider: 09/13/17 10:01 - History of Present Illness Initial Comments: 09/13/17 10:41 The patient is a 76 year old female with a history of fibromyalgia, angioedema, who presents for evaluation of SOB, sore throat, and nasal congestion. The patient reports a 17 day history of sore throat as well as a sensation of a lump in her throat. 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 However she notes that today she began experiencing some episodes of SOB with some associated nasal congestion that prompted her presentation to the ED today. She notes some difficulty swallowing secondary to her sore throat as well. She denies fevers, chills, chest pain, abdominal pain, or changes with urination or bowel movements. Past History - Past Medical History Allergies/Adverse Reactions: Allergies Allergy/AdvReac Type Severity Reaction Status Date / Time clindamycin Allergy Severe Swelling Verified 09/13/17 08:39 Penicillins Allergy Unknown Verified 09/13/17 08:39 Sulfa (Sulfonamide Allergy Unknown Itching Verified 09/13/17 08:39 Antibiotics) [Sulfa(Sulfonamide Antibiotics)] Home Medications: Ambulatory Orders Esomeprazole Magnesium [Nexium 24Hr] 20 mg PO DAILY 08/26/17 Levocetirizine Dihydrochloride [Xyzal] 5 mg PO HS 09/13/17 COPD: No GI Disorders: Yes (gerd) - Immunization History Immunization Up to Date: Yes - Suicide/Smoking/Psychosocial Hx Smoking History: Never smoked Have you smoked in the past 12 months: No Hx Alcohol Use: No Drug/Substance Use Hx: No Substance Use Type: None Hx Substance Use Treatment: No Review of Systems - Review of Systems Comments:: 09/13/17 10:46 Constitutional: No fevers, chills, fatigue, malaise HEENT: Sore throat. Nasal congestion. No Rhinorrhea, Cardiovascular: No chest pain, syncope, palpitations, lightheadedness Respiratory: SOB. No Cough, Hemoptysis, Gastrointestinal: No Abdominal pain, Nausea, Vomiting, Constipation, Diarrhea, Melena Genitourinary: No Dysuria, Frequency, Urgency, Hesitancy, Hematuria, Flank pain Musculoskeletal: No Myalgia, arthralgia Skin: No rashes, bruising, pallor Neurologic: No Headache, Dizziness, Numbness, Weakness, or Tingling Psychiatric: No Hallucinations. No SI or HI *Physical Exam - Vital Signs Last Vital Signs Temp Pulse Resp BP Pulse Ox 97.8 F 98 H 21 130/95 100 09/13/17 08:39 09/13/17 08:39 09/13/17 08:39 09/13/17 08:39 09/13/17 08:39 - Physical Exam Comments: 09/13/17 10:46 General Appearance: Nourished. No Apparent Distress HEENT: EOMI, CATINA. Pharyngeal Erythema noted. No Largyneal or angioedema noted on exam. Uvula is midline without any tonsillar edema. No Uvula swelling noted. No Tonsillar Exudate, Tonsillar Erythema Neck: No Cervical Lymphadenopathy Respiratory/Chest: Lungs Clear, Normal Breath Sounds. No Crackles, Rales, Rhonchi, Wheezing Cardiovascular: Regular Rhythm, Regular Rate. No Murmur, Gallops, Rubs Gastrointestinal/Abdominal: Normal Bowel Sounds, Soft. No Guarding, Rebound, Tenderness Musculoskeletal: No CVA Tenderness Extremity: Normal Capillary Refill Integumentary: Normal Color, Dry, Warm Neurologic: Fully Oriented, Alert, Normal Mood/Affect, Normal Response, ED Treatment Course - LABORATORY CBC & Chemistry Diagram: 09/13/17 11:10 09/13/17 11:10 Medical Decision Making - Medical Decision Making 09/13/17 10:48 The patient is a 76 year old female with a history of fibromyalgia, angioedema, who presents for evaluation of SOB, sore throat, and nasal congestion. Differential includes but is not limited to: Pharyngitis, viral syndrome, infectious, metabolic derangement. Given the patient's physical exam, it is likely her symptoms are due to a viral syndrome or possibly a pharyngitis. However we will obtain a cbc, cmp, ekg, rapid strep, influenza swab to evaluate further. We will treat the patient with benadryl and continue to monitor and reassess. 09/13/17 12:46 cbc, cmp, rapid strep, influenza are unremarkable. It is likely the patient's symptoms are due to a viral syndrome. She reports improvement in her symptoms after benadryl. We are comfortable discharging the patient home at this time with primary care provider follow up. We discussed the results and the plan with the patient who voiced understanding and is agreeable with the plan. *DC/Admit/Observation/Transfer Diagnosis at time of Disposition: URI (upper respiratory infection) Qualifiers: URI type: unspecified URI Qualified Code(s): J06.9 - Acute upper respiratory infection, unspecified - Discharge Dispostion Disposition: HOME Condition at time of disposition: Improved Admit: No - Referrals Referrals: Thao Sepulveda MD [Primary Care Provider] - - Patient Instructions Printed Discharge Instructions: DI for Viral Upper Respiratory Infection -- Adult, DI for Viral Pharyngitis Additional Instructions: Please return to the ER if you experience concerning or worsening symptoms including chest pain, fevers, or difficulty breathing. Your lab results were normal here in the ER. It is important that you call to schedule a follow up appointment with your primary care provider to discuss your ER visit and further management of your symptoms. - Post Discharge Activity
[2017-09-13] MEDS ORDERED: diphenhydrAMINE HCL 25 MG CAPSULE (FP) PO ONE (10:40)
[2017-09-13 11:19] LABS: BASO % 0.8 % (0-2.0); EOS % 1.2 % (0-4.5); HEMATOCRIT 40.7 % (32.4-45.2); HEMOGLOBIN 13.1 GM/dL (10.7-15.3); LYMPH % 15.5 % (8-40); MCH 29.3 pg (25.7-33.7); MCHC 32.1 g/dl (32.0-36.0); MEAN CELL VOLUME 91.1 fl (80-96); MEAN PLT VOLUME 7.8 fl (7.5-11.1); MONO % 6.6 % (3.8-10.2); NEUT % 75.9 % (42.8-82.8); PLATELET COUNT 274 K/MM3 (134-434); RBC 4.47 M/mm3 (3.60-5.2); RDW 14.7 % (11.6-15.6); WHITE BLOOD COUNT 8.3 K/mm3 (4.0-10.0)
[2017-09-13 11:42] LABS: ALBUMIN 3.9 g/dl (3.4-5.0); ANION GAP 7 (8-16); BILIRUBIN,TOTAL 0.8 mg/dL (0.2-1.0); BLOOD UREA NITROGEN 13 mg/dL (7-18); CALCIUM 8.9 mg/dL (8.5-10.1); CHLORIDE 105 mmol/L (98-107); CO2 27 mmol/L (21-32); CREATININE 0.9 mg/dL (0.55-1.02); GLUCOSE,RANDOM 97 mg/dL (74-106); POTASSIUM 4.1 mmol/L (3.5-5.1); SGOT/AST 16 U/L (15-37); SGPT/ALT 23 U/L (12-78); SODIUM 139 mmol/L (136-145)
[2017-09-13 11:44] LABS: ALK PHOS 39 U/L (45-117); TOT PROT 7.1 g/dl (6.4-8.2)
[2017-09-13] MEDS ORDERED: RANITIDINE HCL 150 MG TABLET (FP) PO ONE (12:43)
[2017-09-13] MEDS ORDERED: RANITIDINE HCL 150 MG TABLET (FP) ONE (12:53)
[2017-09-13 13:16] VITALS: PULSE 77
--- NOTE | 2017-09-14 17:14 | EKG ---
Test Reason : Blood Pressure : / mmHG Vent. Rate : 077 BPM Atrial Rate : 077 BPM P-R Int : 162 ms QRS Dur : 094 ms QT Int : 384 ms P-R-T Axes : 036 -43 055 degrees QTc Int : 434 ms NORMAL SINUS RHYTHM LEFT AXIS DEVIATION ABNORMAL ECG WHEN COMPARED WITH ECG OF 24-JUL-2017 11:51, INCOMPLETE RIGHT BUNDLE BRANCH BLOCK IS NO LONGER PRESENT BORDERLINE CRITERIA FOR ANTERIOR INFARCT ARE NO LONGER PRESENT BORDERLINE CRITERIA FOR ANTEROLATERAL INFARCT ARE NO LONGER PRESENT Confirmed by SG NATHAN MD ([id number]) on 09/14/2017 5:13:47 PM Referred By: Confirmed By:SG NATHAN MD
== END 2017-09-13 12:40 | disposition home or self-care (01) ==
LOC: JER 08:35
DX: J06.9 Acute upper respiratory infection, unspecified (principal); B97.89 Other viral agents as the cause of diseases classified elsewhere
CPT/HCPCS: 36415; 80053; 85025; 87070; 87430; 87804; 93005; 93010; 99282-25

== ENCOUNTER 2017-09-26 15:43 | Emergency (ER) | payer OTHER ==
--- NOTE | 2017-09-26 15:58 | PDOC ---
History of Present Illness - General Stated Complaint: ABD PAIN Time Seen by Provider: 09/26/17 15:54 Past History - Past Medical History Allergies/Adverse Reactions: Allergies Allergy/AdvReac Type Severity Reaction Status Date / Time clindamycin Allergy Severe Swelling Verified 09/13/17 08:39 Penicillins Allergy Unknown Verified 09/13/17 08:39 Sulfa (Sulfonamide Allergy Unknown Itching Verified 09/13/17 08:39 Antibiotics) [Sulfa(Sulfonamide Antibiotics)] Home Medications: Ambulatory Orders Esomeprazole Magnesium [Nexium 24Hr] 20 mg PO DAILY 08/26/17 Levocetirizine Dihydrochloride [Xyzal] 5 mg PO HS 09/13/17 COPD: No GI Disorders: Yes (gerd) - Immunization History Immunization Up to Date: Yes - Suicide/Smoking/Psychosocial Hx Smoking History: Never smoked Have you smoked in the past 12 months: No Hx Alcohol Use: No Drug/Substance Use Hx: No Substance Use Type: None Hx Substance Use Treatment: No
[2017-09-26 16:09] VITALS: TEMP 98
[2017-09-26 16:44] VITALS: BMI 26.2
[2017-09-26 16:57] LABS: EOS % 6.8 % (0-4.5); HEMATOCRIT 45.1 % (32.4-45.2); HEMOGLOBIN 14.6 GM/dL (10.7-15.3); LYMPH % 18.1 % (8-40); MCH 27.7 pg (25.7-33.7); MCHC 32.4 g/dl (32.0-36.0); MEAN CELL VOLUME 85.6 fl (80-96); MEAN PLT VOLUME 11.2 fl (7.5-11.1); MONO % 11.4 % (3.8-10.2); NEUT % 62.7 % (42.8-82.8); PLATELET COUNT 220 K/MM3 (134-434); RBC 5.26 M/mm3 (3.60-5.2); RDW 14.5 % (11.6-15.6)
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
[2017-09-26] MEDS ORDERED: SODIUM CHLORIDE 1,000 ML IV STA (17:38)
[2017-09-26 18:36] LABS: ALBUMIN 3.6 g/dl (3.4-5.0); ALK PHOS 37 U/L (45-117); ANION GAP 7 (8-16); BILIRUBIN,TOTAL 0.4 mg/dL (0.2-1.0); BLOOD UREA NITROGEN 10 mg/dL (7-18); CALCIUM 8.5 mg/dL (8.5-10.1); CHLORIDE 102 mmol/L (98-107); CO2 29 mmol/L (21-32); CREATININE 1.1 mg/dL (0.55-1.02); GLUCOSE,RANDOM 111 mg/dL (74-106); POTASSIUM 3.8 mmol/L (3.5-5.1); SGOT/AST 17 U/L (15-37); SGPT/ALT 23 U/L (12-78); SODIUM 138 mmol/L (136-145); TOT PROT 6.7 g/dl (6.4-8.2)
[2017-09-26 19:05] VITALS: BP 111/56; PULSE 77
--- NOTE | 2017-10-02 08:07 | EKG ---
Test Reason : Blood Pressure : / mmHG Vent. Rate : 073 BPM Atrial Rate : 073 BPM P-R Int : 158 ms QRS Dur : 102 ms QT Int : 372 ms P-R-T Axes : 051 -45 065 degrees QTc Int : 409 ms NORMAL SINUS RHYTHM LEFT ANTERIOR FASCICULAR BLOCK ABNORMAL ECG WHEN COMPARED WITH ECG OF 13-SEP-2017 12:32, NO SIGNIFICANT CHANGE WAS FOUND Confirmed by EMMA BAUTISTA, LUDMILA ([id number]) on 10/02/2017 8:07:23 AM Referred By: Confirmed By:LUDMILA CARTER MD
== END 2017-09-26 19:15 | disposition home or self-care (01) ==
LOC: JER 15:43
PROC: 3E0337Z Introduction of Electrolytic and Water Balance Substance into Peripheral Vein, Percutaneous Approach (ICD-10-PCS; principal; 2017-09-26)
DX: R55 Syncope and collapse (principal); K21.9 Gastro-esophageal reflux disease without esophagitis
CPT/HCPCS: 36415; 80053; 85025; 93005; 93010; 99281-25

== ENCOUNTER 2017-10-06 21:32 | Emergency (ER) | payer OTHER ==
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
[2017-10-06 21:55] VITALS: BP 138/86; PULSE 79; TEMP 97.9; BMI 22.6
[2017-10-07] MEDS ORDERED: MECLIZINE HCL 25 MG TABLET (FP) PO ONE (00:34)
[2017-10-07] MEDS ORDERED: MECLIZINE HCL 25 MG TABLET (FP) ONE (00:56)
== END 2017-10-07 00:59 | disposition home or self-care (01) ==
LOC: JER 21:32
DX: M53.82 Other specified dorsopathies, cervical region (principal)
CPT/HCPCS: 70490-TC; 99281-25

== ENCOUNTER 2017-10-10 22:17 | Emergency (ER) | payer OTHER ==
[2017-10-10 22:38] VITALS: BP 132/72; PULSE 77; TEMP 97.6; BMI 23.8
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
--- NOTE | 2017-10-11 01:03 | PDOC ---
Attending Attestation - [facility] HPI: 10/11/17 01:10 The patient is a 76 year old female, with a significant past medical history of fibromyalgia and GERD, who presents to the emergency department with sudden onset headache at 4PM yesterday. She reports a pressure on the top of her head, 4/10 in severity, without radiation. She reportedly took 2 Tylenol without resolution of her headaches. She states this is not the worst headache in her life, however, reports her headaches usually resolve with water and Tylenol. She denies exacerbating or alleviating factors of pain. She reportedly was seen in the ED a few days ago for dizziness, which has gotten better, however, continued to experience the dizziness. The patient denies chest pain, shortness of breath. The patient denies fever, chills, nausea, vomit, diarrhea and constipation. The patient denies dysuria, frequency, urgency and hematuria. - Physicial Exam PE: 10/11/17 01:10 GENERAL: Well developed, well nourished. Awake and alert. No acute distress. HEENT: Normocephalic, atraumatic. PERRLA, EOMI. No conjunctival pallor. Sclera are non- icteric. Moist mucous membranes. Oropharynx is clear. NECK: Supple. Full ROM. No JVD. Carotid pulses 2+ and symmetric, without bruits. No thyromegaly. No lymphadenopathy. CARDIOVASCULAR: Regular rate and rhythm. No murmurs, rubs, or gallops. Distal pulses are 2+ and symmetric. PULMONARY: No evidence of respiratory distress. Lungs clear to auscultation bilaterally. No wheezing, rales or rhonchi. ABDOMINAL: Soft. Non-tender. Non-distended. No rebound or guarding. No organomegaly. Normoactive bowel sounds. MUSCULOSKELETAL Normal range of motion at all joints. No bony deformities or tenderness. No CVA tenderness. EXTREMITIES: No cyanosis. No clubbing. No edema. No calf tenderness. SKIN: Warm and dry. Normal capillary refill. No rashes. No jaundice. NEUROLOGICAL: Alert, awake, appropriate. Cranial nerves 2-12 intact. Normoreflexic in the upper and lower extremities. Normal speech. Toes are down-going bilaterally. Gait is normal without ataxia. PSYCHIATRIC: Cooperative. Good eye contact. Appropriate mood and affect. - Medical Decision Making 10/11/17 01:10 Documentation prepared by Demetria Denney, acting as medical superintendent for Robinson Barbour DO. <Demetria Denney - Last Filed: 10/11/17 01:10> - Resident Resident Name: Edelmira Zamora - ED Attending Attestation I have performed the following: I have examined & evaluated the patient, The case was reviewed & discussed with the resident, I agree w/resident's findings & plan, Exceptions are as noted - Medical Decision Making 10/11/17 05:18 Pt treated and released. <Robinson Barbour - Last Filed: 10/11/17 05:20> Discharge Disposition - Discharge Dispostion Last Admission D/C Date: 07/25/17 Admit: No <Robinson Barbour - Last Filed: 10/11/17 05:20> - Diagnosis Headache Qualifiers: Headache type: unspecified Headache chronicity pattern: acute headache Intractability: not intractable Qualified Code(s): R51 - Headache - Discharge Dispostion Disposition: HOME Condition at time of disposition: Stable - Referrals Referrals: Thao Sepulveda MD [Primary Care Provider] - Toni Tucker MD [Staff Physician] - - Patient Instructions Printed Discharge Instructions: DI for Headache Additional Instructions: Please follow up with you doctor as soon as possible if symptoms persist. Return if any problems - Post Discharge Activity
[2017-10-11] MEDS ORDERED: ACETAMINOPHEN 1000 MG/100 ML VIAL (NON FORMULARY) IVPB ONE (01:06)
[2017-10-11] MEDS ORDERED: SODIUM CHLORIDE 0.9% 1000 ML INFUS.BAG IV ONE (01:06)
[2017-10-11] MEDS ORDERED: METOCLOPRAMIDE HCL INJECTION 10 MG/2 ML VIAL IVPUSH ONE (01:06)
[2017-10-11] MEDS ORDERED: ACETAMINOPHEN INJECTION 100 ML IVPB ONE (02:18)
[2017-10-11] MEDS ORDERED: METOCLOPRAMIDE HCL INJECTION 10 MG/2 ML VIAL ONE (02:18)
== END 2017-10-11 05:28 | disposition home or self-care (01) ==
LOC: JER 22:17
PROC: 3E033NZ Introduction of Analgesics, Hypnotics, Sedatives into Peripheral Vein, Percutaneous Approach (ICD-10-PCS; principal; 2017-10-10)
PROC: 3E033GC Introduction of Other Therapeutic Substance into Peripheral Vein, Percutaneous Approach (ICD-10-PCS; 2017-10-10)
DX: R51 Headache (principal)
CPT/HCPCS: 70450-TC; 99281-25

== ENCOUNTER 2018-03-09 04:43 | Emergency (ER) | payer OTHER ==
--- NOTE | 2018-03-09 05:22 | PDOC ---
History of Present Illness - General Chief Complaint: Allergic Reaction Stated Complaint: SWOLLEN TONGUE Time Seen by Provider: 03/09/18 05:21 Past History - Travel Traveled outside of the country in the last 30 days: No Close contact w/someone who was outside of country & ill: No - Past Medical History Allergies/Adverse Reactions: Allergies Allergy/AdvReac Type Severity Reaction Status Date / Time clindamycin Allergy Severe Swelling Verified 03/09/18 06:47 Penicillins Allergy Unknown Verified 03/09/18 06:47 Sulfa (Sulfonamide Allergy Unknown Itching Verified 03/09/18 06:47 Antibiotics) [Sulfa(Sulfonamide Antibiotics)] ciprofloxacin [From Cipro] Allergy Verified 03/09/18 06:47 Home Medications: Ambulatory Orders Esomeprazole Magnesium [Nexium 24Hr] 20 mg PO DAILY 08/26/17 Alprazolam 0.25 mg PO BID PRN 03/09/18 Citalopram Hydrobromide [Citalopram HBr] 10 mg PO DAILY 03/09/18 COPD: No GI Disorders: Yes (gerd) - Immunization History Immunization Up to Date: Yes - Suicide/Smoking/Psychosocial Hx Smoking History: Never smoked Have you smoked in the past 12 months: No Information on smoking cessation initiated: No Hx Alcohol Use: No Drug/Substance Use Hx: No Substance Use Type: None Hx Substance Use Treatment: No Review of Systems - Review of Systems Able to Perform ROS?: Yes Is the patient limited Tanzanian proficient: Yes Constitutional: No: Symptoms Reported, See HPI, Chills, Diaphoresis, Fever, Loss of Appetite, Malaise, Night Sweats, Weakness, Weight Stable, Unintentional Wgt. Loss, Unexplained wgt Loss, Other HEENTM: Yes: Other (tongue swelling minimal) Respiratory: No: Symptoms reported, See HPI, Cough, Orthopnea, Shortness of Breath, SOB with Exertion, SOB at Rest, Stridor, Wheezing, Productive cough, Hemoptysis, Other Cardiac (ROS): No: Symptoms Reported, See HPI, Chest Pain, Edema, Irregular Heart Rate, Lightheadedness, Palpitations, Syncope, Chest Tightness, Other ABD/GI: No: Symptoms Reported, See HPI, Abdominal Distended, Abd. Pain w/ defecation, Blood Streaked Bowels, Constipated, Diarrhea, Difficulty Swallowing , Nausea, Poor Appetite, Poor Fluid Intake, Rectal Bleeding, Vomiting, Indigestion, Abdominal cramping, Tarry Stools, Other Musculoskeletal: No: Symptoms Reported, See HPI, Back Pain, Gout, Joint Pain, Joint Swelling, Muscle Pain, Muscle Weakness, Neck Pain, Joint Stiffness, Other Integumentary: No: Symptoms Reported, See HPI, Bruising, Change in Color, Change in Hair/Nails, Dryness, Erythema, Flushing, Lesions, Lumps, Pallor, Pruritus, Rash, Sweating, Other Neurological: No: Symptoms reported, See HPI, Headache, Numbness, Paresthesia, Pre-Existing Deficit, Seizure, Tingling, Tremors, Weakness, Unsteady Gait, Ataxia, Dizziness, Other *Physical Exam - Vital Signs Last Vital Signs Temp Pulse Resp BP Pulse Ox 97.6 F 72 18 135/70 99 03/09/18 04:56 03/09/18 04:56 03/09/18 04:56 03/09/18 04:56 03/09/18 04:56 - Physical Exam General Appearance: Yes: Nourished, Appropriately Dressed. No: Apparent Distress, Disheveled HEENT: positive: EOMI, CATINA, Normal ENT Inspection, Normal Voice, Symmetrical, TMs Normal, Pharynx Normal Neck: positive: Trachea midline, Normal Thyroid, Supple. negative: Tender, Rigid Respiratory/Chest: positive: Lungs Clear, Normal Breath Sounds. negative: Chest Tender, Respiratory Distress Cardiovascular: positive: Regular Rhythm, Regular Rate, S1, S2 Gastrointestinal/Abdominal: positive: Normal Bowel Sounds, Flat, Soft. negative : Tender Musculoskeletal: positive: Normal Inspection. negative: CVA Tenderness Extremity: positive: Normal Capillary Refill, Normal Inspection, Normal Range of Motion. 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 SHe feels a tingling and slight swelling in her tongue. She took some anti hisptamine pills at home and she is feeling better. SHe received decadron in the ER and she is stable for discharge. Pt has an epi pen at home. *DC/Admit/Observation/Transfer Diagnosis at time of Disposition: Allergic reaction - Discharge Dispostion Disposition: HOME Condition at time of disposition: Stable Decision to Admit order: No - Referrals Referrals: Venancio Watson MD [Staff Physician] - - Patient Instructions Printed Discharge Instructions: DI for Adverse Drug Reaction -- Allergic - Post Discharge Activity
[2018-03-09 05:27] VITALS: BP 135/70; PULSE 72; TEMP 97.6; BMI 25.6
[2018-03-09] MEDS ORDERED: DEXAMETHASONE LIQUID 0.5 MG/5 ML 240 ML BULK BOTTLE PO ONE (05:43)
[2018-03-09] MEDS ORDERED: DEXAMETHASONE SOD PHOSPHATE 10 MG/1 ML VIAL ONE (05:59)
[2018-03-09] MEDS ORDERED: DEXAMETHASONE SOD PHOSPHATE 10 MG/1 ML VIAL IVPUSH ONE (06:00)
== END 2018-03-09 07:18 | disposition home or self-care (01) ==
LOC: JER 04:43
PROC: 3E0333Z Introduction of Anti-inflammatory into Peripheral Vein, Percutaneous Approach (ICD-10-PCS; principal; 2018-03-09)
DX: T78.3XXA Angioneurotic edema, initial encounter (principal); T78.49XA Other allergy, initial encounter; Z88.1 Allergy status to other antibiotic agents
CPT/HCPCS: 96374; 99282-25; J1100

== ENCOUNTER 2018-11-12 08:36 | Emergency (ER) | payer OTHER ==
[2018-11-12 08:40] VITALS: BP 126/72; PULSE 81; TEMP 98.1; BMI 22.8
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
[2018-11-12] MEDS ORDERED: IBUPROFEN 600 MG TABLET (FP) PO ONE ×2 (09:11→09:40)
[2018-11-12] MEDS ORDERED: LIDOCAINE 5% TOPICAL PATCH TP ONE (09:14)
[2018-11-12] MEDS ORDERED: LIDOCAINE 5% TOPICAL PATCH ONE (09:40)
[2018-11-12] MEDS ORDERED: LIDOCAINE PATCH REMOVAL MC SCH (22:00)
== END 2018-11-12 10:39 | disposition home or self-care (01) ==
LOC: JERFT 08:36
DX: S13.4XXA Sprain of ligaments of cervical spine, initial encounter (principal); V43.62XA Car passenger injured in collision with other type car in traffic accident, initial encounter; Y93.89 Activity, other specified; Y92.410 Unspecified street and highway as the place of occurrence of the external cause
CPT/HCPCS: 72050-TC-FY; 72070-TC-FY; 99281-25

== ENCOUNTER 2020-02-13 15:53 | Emergency (ER) | payer OTHER ==
[2020-02-13] MEDS ORDERED: ONDANSETRON 4 MG/2 ML VIAL IVPUSH ONE (15:58)
[2020-02-13] MEDS ORDERED: FAMOTIDINE 20 MG/50 ML IVPB 20 MG/50 ML MG IVPB ONE ×2 (15:58→16:07)
[2020-02-13 16:00] VITALS: BMI 23.6
--- NOTE | 2020-02-13 16:02 | PDOC ---
Rapid Medical Evaluation Chief Complaint: Pain Time Seen by Provider: 02/13/20 15:57 Medical Evaluation: Allergies Allergy/AdvReac Type Severity Reaction Status Date / Time clindamycin Allergy Severe Swelling Verified 11/12/18 08:37 Penicillins Allergy Unknown Verified 11/12/18 08:37 Sulfa (Sulfonamide Allergy Unknown Itching Verified 11/12/18 08:37 Antibiotics) [Sulfa(Sulfonamide Antibiotics)] ciprofloxacin [From Cipro] Allergy Verified 11/12/18 08:37 02/13/20 15:59 I performed a brief in-person evaluation of this patient. Pt is a 79 y/o female with complaint of epigastric abdominal pain and nausea for the last 3 days. The patient started Cipro 2 days ago for a possible infection to her left anterior rib region. The patient has GERD for which she takes Nexium. Pertinent physical exam findings: Nontoxic, no reproducible L anterior rib pain, no lesions or signs of infection I have ordered the following: labs, saline lock, ekg, pepcid, zofran Patient to proceed to ED for further evaluation. Discharge Disposition - Diagnosis Epigastric abdominal pain - Referrals - Patient Instructions - Post Discharge Activity
[2020-02-13] MEDS ORDERED: ONDANSETRON 4 MG/2 ML VIAL ONE (16:07)
--- NOTE | 2020-02-13 16:14 | PDOC ---
History of Present Illness - General Chief Complaint: Pain Stated Complaint: ABD PAIN Time Seen by Provider: 02/13/20 15:57 History Source: Patient Exam Limitations: No Limitations - History of Present Illness Initial Comments: 79 y/o female presenting to [facility] ER complaining of three days of intermittent epigastric fullness and pain. Generally starts approx. 10 min after eating. Associates nausea, burning sensation, and diffuse back pain. Denies fevers, chills, chest pain, SOB, diarrhea, hematochezia, melena, dysuria, hematuria, or increased urinary frequency. Last BM today; described as normal. Started taking PO Ciprofloxacin three days ago for possible anterior chest wall cellulitis. Reports the rash under both breasts has been a chronic occurrence with episodes generally occurring in warm weather. Past History - Past Medical History Allergies/Adverse Reactions: Allergies Allergy/AdvReac Type Severity Reaction Status Date / Time clindamycin Allergy Severe Swelling Verified 02/13/20 16:37 Penicillins Allergy Unknown Verified 02/13/20 16:37 Sulfa (Sulfonamide Allergy Unknown Itching Verified 02/13/20 16:37 Antibiotics) [Sulfa(Sulfonamide Antibiotics)] azelastine [From Dymista] Allergy Verified 02/13/20 17:21 fluticasone [From Dymista] Allergy Verified 02/13/20 17:21 Home Medications: Ambulatory Orders Alprazolam 0.5 mg PO BID 03/11/18 Citalopram Hydrobromide [Celexa -] 10 mg PO DAILY 03/11/18 Esomeprazole Magnesium [Nexium 24Hr] 40 mg PO DAILY 03/11/18 Metoclopramide HCl 10 mg PO PRN 02/13/20 Hx Myocardial Infarction: No COPD: No Diabetes: No GI Disorders: Yes (GERD) HTN: No Hypercholesterolemia: No 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 All systems negative except as noted above. *Physical Exam - Vital Signs Last Vital Signs Temp Pulse Resp BP Pulse Ox 98.6 F 70 17 141/94 99 02/13/20 15:56 02/13/20 15:56 02/13/20 15:56 02/13/20 15:56 02/13/20 15:56 - Physical Exam Vital signs and nursing notes reviewed. Constitutional- Well-developed, well-nourished elderly female in no acute distress or obvious discomfort. Found sitting upright on edge of hospital bed. Answered all questions appropriately and completely. Head- Normocephalic. No obvious external signs of trauma. Eyes- Sclerae white. Conjunctiva moist and not injected. Neck- Supple, trachea is midline. Cardiovascular / Chest- Regular rate and regular rhythm. No murmur, rubs, clicks, or gallops. Peripheral pulses- radial pulses full. Respiratory- Breathing unlabored. Speaking in multi-word responses without pausing. Equal chest rise and fall. Clear to auscultation bilaterally. No stridor, no wheezing, no rhonchi. Gastrointestinal- Discomfort in epigastric region and RUQ with grimace but no rebound or guarding. Pt able to transition from fowlers to semi-fowlers positions without obvious discomfort. Globally, abdomen is soft and nondistended. No pulsatile masses. No overlying skin lesions or obvious signs of trauma. Back- Diffuse, bilateral back pain without point tenderness along thoracic or lumbar spine. No overlying skin changes or bony deformity. Neuro- Alert and oriented x4. Moving all four extremities spontaneously. Skin- Warm, dry, and intact. - No R or L CVA tenderness. Psych- Affect- appropriate. Mood- normal. Speech was non-labored, non- pressured. ED Treatment Course - LABORATORY CBC & Chemistry Diagram: 02/13/20 16:15 02/13/20 16:15 Medical Decision Making - Medical Decision Making 79 y/o female presenting with three days of epigastric vs RUQ pain w/ reflux symptoms. Started with initiation of PO abx. Afebrile. Triage vitals unremarkable for hypotension or tachycardia. Physical exam as described above. No acute abdominal signs. Low suspicion for hepatitis vs pancreatitis vs cholecystitis. Considered ACS given age. Suspect likely acute gastritis secondary to abx. Given Pepcid and Zofran for symptom relief. Chest wall lesions likely fungal infection. Given tube of Clotrimazole. Enco uraged pt to discontinue Cipro. Reviewed labs. Noted microscopic hematuria. Encouraged pt to f/u closely with PCP for further guidance. Reviewed U/S. No acute pathology. Hepatic cyst unchanged from previous. Pt reasessed. Reports symptoms have resolved. Repeat abdominal exam unchanged from initial. No acute abdominal signs. Discussed physical exam findings, laboratory results, and U/S findings with pt. Answered all questions. Provided return precautions. pt expressed verbal understanding and agreement with plan to discharge home with outpatient follow up. Provided copies of todays results. Flavio Collazo M.D., PGY2 Emergency Medicine Resident Case discussed with ED Attending Dr. Garcia Discharge - Discharge Information Problems reviewed: Yes Clinical Impression/Diagnosis: Epigastric abdominal pain Hematuria Qualifiers: Hematuria type: asymptomatic microscopic Qualified Code(s): R31.21 - Asymptomatic microscopic hematuria Condition: Good Disposition: HOME - Admission No - Follow up/Referral Referrals: Thao Sepulveda MD [Primary Care Provider] - - Patient Discharge Instructions Patient Printed Discharge Instructions: DI for Epigastric Pain Additional Instructions: You were seen today for upper abdominal pain after starting the Ciprofloxacin antibiotic. Your blood work and ultrasound were normal. The pain is likely stoma ch irritation from the antibiotic. The rash under your breasts is likely a fungal infection and not a bacterial cellulitis. You should stop the Ciprofloxacin and start using the Clotrimazole cream. Use it twice a day for the next two weeks. Your urine test showed a small amount of blood. You need to discuss this further with your primary care doctor. Follow up with your primary care doctor in the next 1-2 weeks. You will need to call to make an appointment. The number is included in this packet. A copy of todays results are attached to this packet. Take it to the appointment so your doctor can review them. Go to the nearest emergency department if your condition worsens or you feel li ke you need additional emergency evaluation. Print Language: LIBERIAN - Post Discharge Activity
[2020-02-13 16:38] LABS: BASO % 0.9 % (0-2.0); EOS % 2.5 % (0-4.5); HEMATOCRIT 34.6 % (32.4-45.2); HEMOGLOBIN 11.9 GM/dL (10.7-15.3); MCH 31.9 pg (25.7-33.7); MCHC 34.5 g/dl (32.0-36.0); MEAN CELL VOLUME 92.5 fl (80-96); MEAN PLT VOLUME 7.8 fl (7.5-11.1); MONO % 8.3 % (3.8-10.2); NEUT % 63.3 % (42.8-82.8); PLATELET COUNT 239 K/MM3 (134-434); RBC 3.75 M/mm3 (3.60-5.2); RDW 13.7 % (11.6-15.6); WHITE BLOOD COUNT 8.4 K/mm3 (4.0-10.0)
[2020-02-13 17:15] LABS: EPI CELLS 1 /uL (0-25.1); HYALINE CASTS 0 /uL (0-3.1); URINE APPEARANCE CLEAR; URINE BACTERIA 2 /uL (0-1359); URINE BILIRUBIN NEGATIVE (NEGATIVE); URINE COLOR YELLOW; URINE GLUCOSE (UA) NEGATIVE (NEGATIVE); URINE KETONE NEGATIVE (NEGATIVE); URINE LEUK ESTERASE NEGATIVE (NEGATIVE); URINE NITRITE NEGATIVE (NEGATIVE); URINE PROTEIN NEGATIVE (NEGATIVE); URINE RBC 18 /uL (0-23.9); URINE UROBILINOGEN 0.2 mg/dL (0.2-1.0); URINE WBC 2 /uL (0-25.8)
[2020-02-13 17:22] LABS: ALBUMIN 3.8 g/dl (3.4-5.0); ALK PHOS 44 U/L (45-117); ANION GAP 6 MMOL/L (8-16); BILIRUBIN,TOTAL 0.4 mg/dL (0.2-1); BLOOD UREA NITROGEN 16.2 mg/dL (7-18); CALCIUM 8.6 mg/dL (8.5-10.1); CHLORIDE 101 mmol/L (98-107); CO2 28 mmol/L (21-32); CREATININE 1.3 mg/dL (0.55-1.3); GLUCOSE,RANDOM 93 mg/dL (74-106); LIPASE 321 U/L (73-393); POTASSIUM 3.7 mmol/L (3.5-5.1); SGOT/AST 19 U/L (15-37); SGPT/ALT 24 U/L (13-61); SODIUM 135 mmol/L (136-145); TOT PROT 7.1 g/dl (6.4-8.2)
--- NOTE | 2020-02-13 18:10 | PDOC ---
Documentation entered by Sachin Bullard SCRIBE, acting as scribe for Jimbo Garcia MD. Jimbo Garcia MD: This documentation has been prepared by the Juan Miguel easton Nirvannie, SCRIBE, under my direction and personally reviewed by me in its entirety. I confirm that the documentation accurately reflects all work, treatment, procedures, and medical decision making performed by me. Attending Attestation - Resident Resident Name: Flavio Collazo - Attending Attestation I have performed the following: I have examined & evaluated the patient, The case was reviewed & discussed with the resident, I agree w/resident's findings & plan, Exceptions are as noted - HPI HPI: 02/13/20 17:32 CC: Abdominal pain with nausea The patient is a 79 year old female with a significant past medical history of anxiety, GERD, fibromyalgia, and celiacs disease who presents to the emergency department with 3 days of abdominal pain with associated nausea. Patient describes his pain as worsened after PO intake. Allergies: As per nursing notes. Primary Care Physician: Dr. Sepulveda - Physicial Exam PE: 02/13/20 18:10 Vitals: Triage Vital signs reviewed General Appearance: No acute distress, well nourished well developed, Head: Atraumatic, Eyes: Pupils equal reactive round, extraocular movement intact Chest Wall: Nontender Cardiac: Regular rate and rhythym, no murmurs, no rubs, no gallops, Lungs: Clear to auscultation bilateral, good air movement bilaterally, Abdomen: Soft, non distended, normal bowel sounds, epigastric and right upper quadrant tenderness to palpation, no rebound no guarding Psych: Normal mood, normal affect - Medical Decision Making 02/13/20 18:51 Well-appearing no apparent distress now with resolved epigastric pain after GI cocktail Labs within normal limits slight detection of RBCs on urinalysis discussed with patient she will follow-up with PCP Ultrasound with no acute pathology EKG demonstrates sinus rhythm incomplete right bundle branch no ST elevations or T wave inversions Interpreted by me. Troponin negative. Slight fungal rash under left breast We will discontinue Cipro patient will follow-up with PCP Findings, need for follow-up and strict return instructions cussed with patient. Discharge - Discharge Information Problems reviewed: Yes Clinical Impression/Diagnosis: Epigastric abdominal pain Hematuria Qualifiers: Hematuria type: asymptomatic microscopic Qualified Code(s): R31.21 - Asymptomatic microscopic hematuria Condition: Good Disposition: HOME - Follow up/Referral Referrals: Thao Sepulveda MD [Primary Care Provider] - - Patient Discharge Instructions Patient Printed Discharge Instructions: DI for Epigastric Pain Additional Instructions: You were seen today for upper abdominal pain after starting the Ciprofloxacin antibiotic. Your blood work and ultrasound were normal. The pain is likely stomach irritation from the antibiotic. The rash under your breasts is likely a fungal infection and not a bacterial cellulitis. You should stop the Ciprofloxacin and start using the Clotrimazole cream. Use it twice a day for the next two weeks. Your urine test showed a small amount of blood. You need to discuss this further with your primary care doctor. Follow up with your primary care doctor in the next 1-2 weeks. You will need to call to make an appointment. The number is included in this packet. A copy of todays results are attached to this packet. Take it to the appointment so your doctor can review them. Go to the nearest emergency department if your condition worsens or you feel like you need additional emergency evaluation. Print Language: MALDIVIAN - Post Discharge Activity
[2020-02-13] MEDS ORDERED: CLOTRIMAZOLE 1% CREAM 15 GM TUBE TP ONE (18:34)
[2020-02-13 19:03] VITALS: BP 128/77; PULSE 68; TEMP 98.2
--- NOTE | 2020-02-15 09:06 | EKG ---
Test Reason : Blood Pressure : / mmHG Vent. Rate : 074 BPM Atrial Rate : 074 BPM P-R Int : 164 ms QRS Dur : 108 ms QT Int : 408 ms P-R-T Axes : 067 -19 077 degrees QTc Int : 452 ms NORMAL SINUS RHYTHM INCOMPLETE RIGHT BUNDLE BRANCH BLOCK BORDERLINE ECG WHEN COMPARED WITH ECG OF 11-MAR-2018 13:51, NO SIGNIFICANT CHANGE WAS FOUND Confirmed by Watson Simons ([id number]) on 02/15/2020 9:05:34 AM Referred By: Confirmed By:Watson Simons
== END 2020-02-13 19:03 | disposition home or self-care (01) ==
LOC: JER 15:53
PROC: 3E03329 Introduction of Other Anti-infective into Peripheral Vein, Percutaneous Approach (ICD-10-PCS; principal; 2020-02-13)
PROC: 3E033GC Introduction of Other Therapeutic Substance into Peripheral Vein, Percutaneous Approach (ICD-10-PCS; 2020-02-13)
DX: R10.13 Epigastric pain (principal); R31.21 Asymptomatic microscopic hematuria
CPT/HCPCS: 36415; 76705-TC; 80053; 81003; 83605; 83690; 84484; 85025; 87086; 93005; 93010; 96365; 96375; 99285-25

== ENCOUNTER 2020-06-08 04:53 | Day surgery (SDC) | payer OTHER ==
--- OUTSIDE RECORDS SUMMARY | 2020-05-27 13:11 | XMS ---
:1940 Author Organization [facility] Care Team Providers Name Role Phone Jimbo Cortez MD Unavailable Unavailable Re-disclosure Warning The records that you are about to access may contain information from federally- assisted alcohol or drug abuse programs. If such information is present, then the following federally mandated warning applies: This information has been disclosed to you from records protected by federal confidentiality rules (42 CFR part 2). The federal rules prohibit you from making any further disclosure of this information unless further disclosure is expressly permitted by the written consent of the person to whom it pertains or as otherwise permitted by 42 CFR part 2. A general authorization for the release of medical or other information is NOT sufficient for this purpose. The Federal rules restrict any use of the information to criminally investigate or prosecute any alcohol or drug abuse patient.The records that you are about to access may contain highly sensitive health information, the redisclosure of which is protected by Article 27-F of the [facility] Public Health law. If you continue you may haveaccess to information: Regarding HIV / AIDS; Provided by facilities licensed or operated by the [facility] Office of Mental Health; or Provided by the [facility] Office for People With Developmental Disabilities. If such information is present, then the following [facility] mandated warning applies: This information has been disclosed to you from confidential records which are protected by state law. State law prohibits you from making any further disclosure of this information without the specific written consent of the person to whom it pertains, or as otherwise permitted by law. Any unauthorized further disclosure in violation of state law may result in a fine or chcf sentence or both. A general authorization for the release of medical or other information is NOT sufficient authorization for further disclosure. Encounters Encounter Providers Location Date Indications Data Source(s ) Outpatient Attender: Jimbo 03/17/2019 F/U Jaki Cortez MD 08:23:00 AM Hospital EDT F/U Insurance Providers Payer name Policy type Policy ID Covered Covered libertarian's Policy P tish / Coverage libertarian ID relationship to [place] Inf ormation type nicholson AETNA [id number] SP [id number] MEDICARE AETNA MCR [id number] PT [id number] LIBERTY [id number] SP [id number] MUTUAL PENDING [id number] SP [id number] WC/NF ONLY AETNA [id number] SP [id number] MEDICARE AETNA O [id number] MEDICARE [id number] SP [id number] A Problems, Conditions, and Diagnoses Code Display Name Description Problem Type Effective Dates Data Source(s) M79.642 Pain in left M79.642 Diagnosis 03/17/2019 [place] [facility] 08:23:00 AM EDT Hospital M79.641 Pain in right M79.641 Diagnosis 03/17/2019 [place] [facility] 08:23:00 AM EDT Hospital
[2020-06-02 10:39] VITALS: BMI 23.2
--- OUTSIDE RECORDS SUMMARY | 2020-06-08 04:57 | XMS ---
:1940 Author Organization [facility] Care Team Providers Name Role Phone Jimbo [...] is protected by Article 27-F of the [facility] Public Health law. If you continue you may haveaccess to information: Regarding HIV / AIDS; Provided by facilities licensed or operated by the [facility] Office of Mental Health; or Provided by the [facility] Office for People With Developmental Disabilities. If such information is present, then the following [facility] mandated warning applies: This information has been [...] law may result in a fine or prison sentence or both. A general authorization for the release of medical or other information is NOT sufficient authorization for further disclosure. Encounters Encounter Providers Location Date Indications Data Source(s ) Outpatient Attender: Jimbo 03/17/2019 F/U Jaki Cortez MD 08:23:00 AM Hospital EDT F/U Insurance Providers Payer name Policy type Policy ID Covered Covered constitution party's Policy P tish / Coverage constitution party ID relationship to [place] Inf ormation type nicholson AETNA [id number] SP [id number] MEDICARE AETNA MCR [id number] PT [id number] LIBERTY [id number] SP [id number] MUTUAL PENDING [id number] SP [id number] WC/NF ONLY AETNA [id number] SP [id number] MEDICARE AETNA HMO [id number] MEDICARE [id number] SP [id number] A Problems, Conditions, and Diagnoses Code Display Name Description Problem Type Effective Dates Data Source(s) M79.642 Pain in left M79.642 Diagnosis 03/17/2019 [place] [facility] 08:23:00 AM EDT Hospital M79.641 Pain in right M79.641 Diagnosis 03/17/2019 [place] [facility] 08:23:00 AM EDT Hospital Results ID Date Data Source [id number] 06/03/2020 09:10:00 AM EDT [facility] Name Value Range Interpretation Description Data Sup porting Code Source(s) Document(s ) SARS [facility] coronavirus 2 RNA This lab was ordered by [facility] and reported by [facility]. Procedure
[2020-06-08 09:30] VITALS: TEMP 97.7
[2020-06-08 09:48] VITALS: PULSE 60
[2020-06-08 10:22] VITALS: BP 131/58
--- NOTE | 2020-06-09 16:26 | PATH ---
Surgical Pathology Report Patient Name: RAHUL AVILA [facility]. Rec. #: [id number] /Age/Gender: 1940 (Age: 79) / F Account: [id number] Location: ASU-ENDOSCOPY Taken: 06/08/2020 Received: 06/08/2020 Reported: 06/09/2020 Physicians: Anette Obrien M.D. Specimen(s) Received A: DUODENUM SECOND PORTION AND BULB B: PRE PYLORIC NODULE C: GASTRIC FUNDUS POLYP D: ANTRUM E: POLYPS RIGHT COLON AND RECTUM F: POLYP ILEOCECAL VALVE G: POLYP RIGHT COLON Clinical History Celiac disease, dyspepsia, history of colon polyps Postoperative diagnosis: Gastric polyp, atrophic gastritis, colon polyp Final Diagnosis A. DUODENUM, SECOND PORTION AND BULB, BIOPSY: DUODENAL MUCOSA WITH SMALL LYMPHOID AGGREGATES AND PRESERVED VILLOUS ARCHITECTURE. SEE COMMENT. B. PREPYLORIC NODULE, BIOPSY: GASTRIC MUCOSA WITH MILD TO MODERATE CHRONIC GASTRITIS AND FOCAL INTESTINAL METAPLASIA. NO DYSPLASIA IDENTIFIED. IMMUNOHISTOCHEMICAL STAIN FOR H. PYLORI IS NEGATIVE. C. GASTRIC FUNDUS POLYP, BIOPSY: FUNDIC GLAND POLYP. IMMUNOHISTOCHEMICAL STAIN FOR H. PYLORI IS NEGATIVE. D. ANTRUM, BIOPSY: GASTRIC ANTRAL MUCOSA WITH MILD CHRONIC GASTRITIS. IMMUNOHISTOCHEMICAL STAIN FOR H. PYLORI IS NEGATIVE. E. RIGHT COLON AND RECTUM, POLYPS, POLYPECTOMY: TUBULAR ADENOMA. POLYPOID COLONIC MUCOSA WITH SMALL LYMPHOID AGGREGATES. F. ILEOCECAL VALVE, POLYP, BIOPSY: POLYPOID COLONIC MUCOSA WITH SMALL LYMPHOID AGGREGATE. G.: COLON, RIGHT, POLYP, BIOPSY: POLYPOID COLONIC MUCOSA WITH SMALL LYMPHOID AGGREGATE. Comment: Part A, diagnostic features of celiac disease are not identified in this material. Suggest clinical, endoscopic, and serologic correlation. Positive and negative controls (internal if applicable) show appropriate results. Electronically Signed Fany Perez M.D. Gross Description A. Received in formalin, labeled "biopsy duodenum second portion and bulb" are 5 sandhu, irregular portions of soft tissue ranging from 0.3-0.5 cm. in greatest dimension. The specimens are submitted in toto in one cassette. B. Received in formalin, labeled "biopsy prepyloric nodule,"" are 4 sandhu, irregular portions of soft tissue ranging from 0.3-0.5 cm. in greatest dimension. The specimens are submitted in toto in one cassette. C. Received in formalin, labeled "biopsy gastric fundus polyp" are 4 sandhu, irregular portions of soft tissue ranging from 0.2-0.4 cm. in greatest dimension. The specimens are submitted in toto in one cassette. D. Received in formalin, labeled "biopsy antrum" is a sandhu, irregular portion of soft tissue measuring 0.5 cm. in greatest dimension. The specimen is submitted in toto in one cassette. E. Received in formalin, labeled "polyp right colon and rectum" are 4 sandhu, irregular portions of soft tissue ranging from 0.2-0.4 cm. in greatest dimension. The specimens are submitted in toto in one cassette. F. Received in formalin, labeled "polyp ileocecal valve" are 3 sandhu, irregular portions of soft tissue ranging from 0.1-0.3 cm. in greatest dimension. The specimens are submitted in toto in one cassette. G. Received in formalin, labeled "polyp right colon" is a sandhu, irregular portion of soft tissue measuring 0.2 cm. in greatest dimension. The specimen is submitted in toto in one cassette. 06/08/2020 sa[place]06/08/2020
== END 2020-06-08 10:35 | disposition home or self-care (01) ==
LOC: JASU-ENDO 04:53
PROVIDERS: ATTEND Internal Medicine Gastroenterology
PROC: 0DBC8ZX Excision of Ileocecal Valve, Via Natural or Artificial Opening Endoscopic, Diagnostic (ICD-10-PCS; 2020-06-08)
PROC: 0DBP8ZX Excision of Rectum, Via Natural or Artificial Opening Endoscopic, Diagnostic (ICD-10-PCS; 2020-06-08)
PROC: 0DB68ZX Excision of Stomach, Via Natural or Artificial Opening Endoscopic, Diagnostic (ICD-10-PCS; 2020-06-08)
PROC: 0DB98ZX Excision of Duodenum, Via Natural or Artificial Opening Endoscopic, Diagnostic (ICD-10-PCS; 2020-06-08)
PROC: 0DBK8ZX Excision of Ascending Colon, Via Natural or Artificial Opening Endoscopic, Diagnostic (ICD-10-PCS; principal; 2020-06-08 09:00)
DX: Z12.11 Encounter for screening for malignant neoplasm of colon (principal); Z86.010 Personal history of colon polyps; D12.2 Benign neoplasm of ascending colon; K62.1 Rectal polyp; K64.8 Other hemorrhoids; K31.7 Polyp of stomach and duodenum; K25.9 Gastric ulcer, unspecified as acute or chronic, without hemorrhage or perforation; K29.50 Unspecified chronic gastritis without bleeding
CPT/HCPCS: 88305-TC; 88342-TC

== ENCOUNTER 2021-08-08 11:43 | Emergency (ER) | payer OTHER ==
[2021-08-08 12:05] VITALS: BP 123/62; PULSE 78; TEMP 98.3; BMI 24.0
[2021-08-08] MEDS ORDERED: FAMOTIDINE 20 MG/50 ML IVPB 20 MG/50 ML MG IVPB ONE (13:12)
[2021-08-08] MEDS ORDERED: MAG HYDROX/AL HYDROX/SIMETH 30 ML UNIT-DOSE CUP PO ONE (13:12)
[2021-08-08] MEDS ORDERED: MAG HYDROX/AL HYDROX/SIMETH 30 ML UNIT-DOSE CUP ONE (14:04)
[2021-08-08 15:30] LABS: EOS % 4.6 % (0-4.5); HEMATOCRIT 35.6 % (32.4-45.2); HEMOGLOBIN 12.1 GM/dL (10.7-15.3); MCH 30.5 pg (25.7-33.7); MEAN CELL VOLUME 89.6 fl (80-96); MEAN PLT VOLUME 8.3 fl (7.5-11.1); MONO % 7.1 % (3.8-10.2); NEUT % 60.3 % (42.8-82.8); PLATELET COUNT 382 10^3/uL (134-434); RBC 3.97 M/mm3 (3.60-5.2); RDW 14.9 % (11.6-15.6)
[2021-08-08 15:32] LABS: WHITE BLOOD COUNT 8.8 K/mm3 (4.0-10.0)
[2021-08-08 15:39] LABS: CHLORIDE 103 mmol/L (98-107); SODIUM 136 mmol/L (136-145)
[2021-08-08 15:42] LABS: ALBUMIN 3.4 g/dl (3.4-5.0); ANION GAP 7 MMOL/L (8-16); BLOOD UREA NITROGEN 12.6 mg/dL (7-18); CO2 26 mmol/L (21-32); GLUCOSE,RANDOM 78 mg/dL (74-106); LIPASE 341 U/L (73-393); MAGNESIUM 2.8 mg/dL (1.8-2.4)
[2021-08-08 15:45] LABS: CREATININE 0.8 mg/dL (0.55-1.3); SGOT/AST 57 U/L (15-37); SGPT/ALT 42 U/L (13-61)
[2021-08-08 15:47] LABS: BILIRUBIN,TOTAL 0.4 mg/dL (0.2-1); TOT PROT 7.7 g/dl (6.4-8.2)
[2021-08-08 15:48] LABS: ALK PHOS 54 U/L (45-117)
[2021-08-08 15:49] LABS: CALCIUM 8.4 mg/dL (8.5-10.1)
[2021-08-08 15:53] LABS: PLATELET ESTIMATE NORMAL
[2021-08-08] MEDS ORDERED: FAMOTIDINE 20 MG TABLET PO ONE (16:33)
[2021-08-08] MEDS ORDERED: FAMOTIDINE 20 MG TABLET ONE (17:18)
[2021-08-09] MEDS ORDERED: CALCIUM CARBONATE 650 MG TABLET PO ONE (14:52)
== END 2021-08-08 17:51 | disposition home or self-care (01) ==
LOC: JER 11:43
DX: K30 Functional dyspepsia (principal)
CPT/HCPCS: 36415; 80053; 83690; 83735; 84484; 85025; 93005; 93010; 99285-25

== ENCOUNTER 2021-11-18 16:50 | Emergency (ER) | payer OTHER ==
[2021-11-18 16:58] VITALS: TEMP 97.5; BMI 31.0
[2021-11-18] MEDS ORDERED: MAG HYDROX/AL HYDROX/SIMETH -MYLANTA- ORAL SUSPENSION PO ONE (17:55)
[2021-11-18] MEDS ORDERED: ACETAMINOPHEN 1000 MG/100 ML BAG IVPB ONE (17:55)
[2021-11-18] MEDS ORDERED: FAMOTIDINE 20 MG/50 ML IVPB 20 MG/50 ML MG IVPB ONE ×2 (17:55→18:19)
[2021-11-18] MEDS ORDERED: MAG HYDROX/AL HYDROX/SIMETH 30 ML UNIT-DOSE CUP ONE (18:19)
[2021-11-18 18:26] LABS: BASO % 0.8 % (0-2.0); EOS % 3.6 % (0-4.5); HEMATOCRIT 32.6 % (32.4-45.2); HEMOGLOBIN 11.2 GM/dL (10.7-15.3); LYMPH % 26.3 % (8-40); MCH 31.4 pg (25.7-33.7); MCHC 34.3 g/dl (32.0-36.0); MEAN CELL VOLUME 91.6 fl (80-96); MONO % 11.4 % (3.8-10.2); NEUT % 57.9 % (42.8-82.8); PLATELET COUNT 267 10^3/uL (134-434); RBC 3.56 M/mm3 (3.60-5.2); RDW 14.5 % (11.6-15.6)
[2021-11-18 18:47] LABS: ALBUMIN 3.4 g/dl (3.4-5.0); BLOOD UREA NITROGEN 14.7 mg/dL (7-18); CALCIUM 8.8 mg/dL (8.5-10.1)
[2021-11-18 18:50] LABS: CREATININE 0.7 mg/dL (0.55-1.3)
[2021-11-18 18:52] LABS: BILIRUBIN,TOTAL 0.3 mg/dL (0.2-1); TOT PROT 6.6 g/dl (6.4-8.2)
[2021-11-18 22:21] VITALS: BP 122/76; PULSE 72
== END 2021-11-18 22:27 | disposition home or self-care (01) ==
LOC: JER 16:50
PROC: 3E033GC Introduction of Other Therapeutic Substance into Peripheral Vein, Percutaneous Approach (ICD-10-PCS; principal; 2021-11-18)
DX: R10.13 Epigastric pain (principal)
CPT/HCPCS: 36415; 71045-TC-FY; 80053; 83690; 84484; 85025; 93005; 93010; 99285-25

== ENCOUNTER 2022-03-04 17:45 | Observation (INO) | payer OTHER ==
[2022-03-04 17:56] VITALS: BMI 30.7
[2022-03-04] MEDS ORDERED: ACETAMINOPHEN 1000 MG/100 ML BAG IVPB ONE (18:08)
[2022-03-04] MEDS ORDERED: FAMOTIDINE 20 MG/50 ML IVPB 20 MG/50 ML MG IVPB ONE ×2 (18:08→18:17)
[2022-03-04] MEDS ORDERED: MAG HYDROX/AL HYDROX/SIMETH -MYLANTA- ORAL SUSPENSION PO ONE (18:08)
[2022-03-04] MEDS ORDERED: MAG HYDROX/AL HYDROX/SIMETH 30 ML UNIT-DOSE CUP ONE (18:16)
[2022-03-04] MEDS ORDERED: ACETAMINOPHEN INJECTION 100 ML IVPB ONE (18:16)
[2022-03-04] MEDS ORDERED: ONDANSETRON 4 MG/2 ML VIAL IVPUSH ONE (18:21)
[2022-03-04] MEDS ORDERED: ONDANSETRON 4 MG/2 ML VIAL ONE (18:22)
[2022-03-04 18:45] LABS: BASO % 0.7 % (0-2.0); EOS % 0.8 % (0-4.5); HEMATOCRIT 33.9 % (32.4-45.2); HEMOGLOBIN 11.5 GM/dL (10.7-15.3); LYMPH % 9.2 % (8-40); MCH 31.1 pg (25.7-33.7); MCHC 34.1 g/dl (32.0-36.0); MEAN CELL VOLUME 91.1 fl (80-96); MEAN PLT VOLUME 7.1 fl (7.5-11.1); MONO % 6.3 % (3.8-10.2); PLATELET COUNT 267 10^3/uL (134-434); RBC 3.72 M/mm3 (3.60-5.2); RDW 14.2 % (11.6-15.6); WHITE BLOOD COUNT 11.3 K/mm3 (4.0-10.0)
[2022-03-04 19:56] LABS: ALBUMIN 3.5 g/dl (3.4-5.0); CALCIUM 8.7 mg/dL (8.5-10.1)
[2022-03-04 19:59] LABS: CREATININE 0.8 mg/dL (0.55-1.3)
[2022-03-04 20:01] LABS: TOT PROT 7.1 g/dl (6.4-8.2)
[2022-03-04] MEDS ORDERED: morphine SULFATE 4 MG/ML VIAL IVPUSH ONE (20:21)
[2022-03-04 20:25] LABS: BILIRUBIN,TOTAL 0.2 mg/dL (0.2-1)
[2022-03-04] MEDS ORDERED: PANTOPRAZOLE SODIUM 40 MG VIAL IVPUSH ONE (21:54)
[2022-03-04] MEDS ORDERED: ONDANSETRON 4 MG/2 ML VIAL IVPUSH PRN (23:00)
[2022-03-04] MEDS ORDERED: PANTOPRAZOLE SODIUM 40 MG/100 ML BAG IVPB ONE (23:13)
[2022-03-05] MEDS ORDERED: ACETAMINOPHEN 1000 MG/100 ML BAG IVPB PRN (07:48)
[2022-03-05 08:39] LABS: BASO % 0.6 % (0-2.0); EOS % 2.6 % (0-4.5); HEMATOCRIT 32.7 % (32.4-45.2); HEMOGLOBIN 11.3 GM/dL (10.7-15.3); LYMPH % 18.8 % (8-40); MCH 31.5 pg (25.7-33.7); MCHC 34.7 g/dl (32.0-36.0); MEAN CELL VOLUME 90.9 fl (80-96); MEAN PLT VOLUME 7.7 fl (7.5-11.1); MONO % 11.5 % (3.8-10.2); NEUT % 66.5 % (42.8-82.8); PLATELET COUNT 252 10^3/uL (134-434); RDW 13.9 % (11.6-15.6); WHITE BLOOD COUNT 9.2 K/mm3 (4.0-10.0)
[2022-03-05 09:23] LABS: CALCIUM 8.3 mg/dL (8.5-10.1)
[2022-03-05 09:24] LABS: ALBUMIN 3.1 g/dl (3.4-5.0); BLOOD UREA NITROGEN 25.6 mg/dL (7-18)
[2022-03-05 09:25] LABS: CREATININE 0.9 mg/dL (0.55-1.3); TOT PROT 6.4 g/dl (6.4-8.2)
[2022-03-05 09:27] LABS: BILIRUBIN,TOTAL 0.6 mg/dL (0.2-1)
[2022-03-05] MEDS ORDERED: CITALOPRAM HYDROBROMIDE 10 MG TABLET PO SCH (10:00)
[2022-03-05] MEDS ORDERED: FAMOTIDINE 20 MG/50 ML IVPB 20 MG/50 ML MG IVPB SCH (10:00)
[2022-03-05] MEDS ORDERED: MAG HYDROX/AL HYDROX/SIMETH -MYLANTA- ORAL SUSPENSION PO SCH (12:00)
[2022-03-05 17:29] VITALS: BP 107/61
[2022-03-05 18:17] VITALS: PULSE 68; TEMP 97.8
[2022-03-06 22:06] LABS: GLIADIN ANTIBODY IGA 9 units (0-19); GLIADIN ANTIBODY IGG 1 units (0-19); TRANSGLUTAMINASE IGG < 2 U/mL (0-5)
== END 2022-03-05 17:45 | disposition home or self-care (01) ==
LOC: JER 17:45 → JERBED 20:42 → J4S 03-05 02:20
PROVIDERS: ADMIT Internal Medicine; ATTEND Internal Medicine
PROC: 3E033NZ Introduction of Analgesics, Hypnotics, Sedatives into Peripheral Vein, Percutaneous Approach (ICD-10-PCS; principal; 2022-03-04)
PROC: 3E033GC Introduction of Other Therapeutic Substance into Peripheral Vein, Percutaneous Approach (ICD-10-PCS; 2022-03-04)
DX: K85.90 Acute pancreatitis without necrosis or infection, unspecified (principal); K90.0 Celiac disease; K21.9 Gastro-esophageal reflux disease without esophagitis; E78.5 Hyperlipidemia, unspecified; K29.70 Gastritis, unspecified, without bleeding; M79.7 Fibromyalgia; K31.84 Gastroparesis; R10.13 Epigastric pain; R74.8 Abnormal levels of other serum enzymes; K31.A0 Gastric intestinal metaplasia, unspecified; R10.9 Unspecified abdominal pain; E73.9 Lactose intolerance, unspecified; Z88.0 Allergy status to penicillin; Z88.2 Allergy status to sulfonamides; Z88.8 Allergy status to other drugs, medicaments and biological substances; F41.9 Anxiety disorder, unspecified; Z87.19 Personal history of other diseases of the digestive system
CPT/HCPCS: 36415; 71045-TC-FY; 80053; 80061; 82150; 82784; 83516; 83690; 83880; 84443; 84484; 85025; 93005; 93010; 96365; 96367; 96375; 96376; 99285-25; C9803-CS; G0378; U0003; U0005

== ENCOUNTER 2022-04-16 04:44 | Day surgery (SDC) | payer OTHER ==
[2022-04-12 14:10] VITALS: BMI 32.0
[2022-04-16 07:44] VITALS: TEMP 97.8
[2022-04-16 10:20] VITALS: BP 141/72; PULSE 65; RESP 15
== END 2022-04-16 10:20 | disposition home or self-care (01) ==
LOC: JASU-ENDO 04:44
PROVIDERS: ATTEND Internal Medicine Gastroenterology
PROC: 0DJD8ZZ Inspection of Lower Intestinal Tract, Via Natural or Artificial Opening Endoscopic (ICD-10-PCS; principal; 2022-04-16 09:00)
DX: Z12.11 Encounter for screening for malignant neoplasm of colon (principal); Z86.010 Personal history of colon polyps; K64.8 Other hemorrhoids; K57.30 Diverticulosis of large intestine without perforation or abscess without bleeding

== ENCOUNTER 2023-01-18 10:05 | Emergency (ER) | payer OTHER ==
[2023-01-18 10:22] VITALS: BP 152/90; PULSE 84; RESP 16; TEMP 97.9; BMI 29.5
[2023-01-18] MEDS ORDERED: ACETAMINOPHEN 1000 MG/100 ML BAG IVPB ONE (11:00)
[2023-01-18] MEDS ORDERED: METOCLOPRAMIDE HCL INJECTION 10 MG/2 ML VIAL IVPB ONE (11:00)
[2023-01-18] MEDS ORDERED: SODIUM CHLORIDE 0.9% 500 ML INFUS.BAG IV ONE (11:00)
[2023-01-18] MEDS ORDERED: ACETAMINOPHEN INJECTION 100 ML IVPB ONE (11:34)
[2023-01-18] MEDS ORDERED: METOCLOPRAMIDE HCL INJECTION 10 MG/2 ML VIAL ONE (11:34)
[2023-01-18 12:38] LABS: BASO % 0.4 % (0-2.0); EOS % 1.3 % (0-4.5); HEMATOCRIT 35.9 % (32.4-45.2); HEMOGLOBIN 12.1 GM/dL (10.7-15.3); LYMPH % 12.8 % (8-40); MCH 30.2 pg (25.7-33.7); MCHC 33.8 g/dl (32.0-36.0); MEAN CELL VOLUME 89.4 fl (80-96); MEAN PLT VOLUME 7.6 fl (7.5-11.1); MONO % 11.2 % (3.8-10.2); NEUT % 74.3 % (42.8-82.8); PLATELET COUNT 225 10^3/uL (134-434); RBC 4.02 M/mm3 (3.60-5.2); RDW 15.2 % (11.6-15.6); WHITE BLOOD COUNT 8.3 K/mm3 (4.0-10.0)
[2023-01-18 13:00] LABS: POTASSIUM 4.4 mmol/L (3.5-5.1)
[2023-01-18 13:02] LABS: ALBUMIN 3.4 g/dl (3.4-5.0); BLOOD UREA NITROGEN 16.4 mg/dL (7-18); CALCIUM 8.8 mg/dL (8.5-10.1); MAGNESIUM 2.3 mg/dL (1.8-2.4)
[2023-01-18 13:05] LABS: CREATININE 0.9 mg/dL (0.55-1.3)
[2023-01-18 13:07] LABS: BILIRUBIN,TOTAL 0.6 mg/dL (0.2-1); TOT PROT 6.8 g/dl (6.4-8.2)
== END 2023-01-18 15:31 | disposition home or self-care (01) ==
LOC: JER 10:05
PROC: 3E033NZ Introduction of Analgesics, Hypnotics, Sedatives into Peripheral Vein, Percutaneous Approach (ICD-10-PCS; principal; 2023-01-18)
PROC: 3E033GC Introduction of Other Therapeutic Substance into Peripheral Vein, Percutaneous Approach (ICD-10-PCS; 2023-01-18)
DX: R51.9 Headache, unspecified (principal); R11.0 Nausea; R05.1 Acute cough
CPT/HCPCS: 0241U-QW; 36415; 71046-TC-FY; 80053; 82550; 83735; 84484; 85025; 93005; 93010; 99285-25

== ENCOUNTER 2023-02-12 20:14 | Emergency (ER) | payer OTHER ==
[2023-02-12 20:25] VITALS: BMI 27.3
[2023-02-12] MEDS ORDERED: ACETAMINOPHEN 500 MG TABLET (FP) PO ONE (20:53)
[2023-02-12 20:54] LABS: BASO % 0.5 % (0-2.0); EOS % 1.6 % (0-4.5); HEMATOCRIT 37.9 % (32.4-45.2); HEMOGLOBIN 12.6 GM/dL (10.7-15.3); LYMPH % 17.6 % (8-40); MCH 29.9 pg (25.7-33.7); MCHC 33.3 g/dl (32.0-36.0); MEAN CELL VOLUME 89.7 fl (80-96); MEAN PLT VOLUME 7.4 fl (7.5-11.1); MONO % 8.4 % (3.8-10.2); NEUT % 71.9 % (42.8-82.8); PLATELET COUNT 222 10^3/uL (134-434); RBC 4.22 M/mm3 (3.60-5.2); RDW 14.6 % (11.6-15.6); WHITE BLOOD COUNT 8.9 K/mm3 (4.0-10.0)
[2023-02-12] MEDS ORDERED: ACETAMINOPHEN 325 MG TABLET (FP) ONE (20:55)
[2023-02-12 21:11] LABS: CHLORIDE 106 mmol/L (98-107); POTASSIUM 3.5 mmol/L (3.5-5.1); SODIUM 142 mmol/L (136-145)
[2023-02-12 21:13] LABS: CALCIUM 8.6 mg/dL (8.5-10.1); GLUCOSE,RANDOM 103 mg/dL (74-106)
[2023-02-12 21:14] LABS: ALBUMIN 3.5 g/dl (3.4-5.0); ANION GAP 10 MMOL/L (8-16); BLOOD UREA NITROGEN 12.3 mg/dL (7-18); CO2 26 mmol/L (21-32); LIPASE 406 U/L (73-393); MAGNESIUM 2.1 mg/dL (1.8-2.4)
[2023-02-12 21:16] LABS: CREATININE 1.3 mg/dL (0.55-1.3); SGPT/ALT 23 U/L (13-61)
[2023-02-12 21:17] LABS: SGOT/AST 19 U/L (15-37)
[2023-02-12 21:18] LABS: BILIRUBIN,TOTAL 0.4 mg/dL (0.2-1); TOT PROT 6.6 g/dl (6.4-8.2)
[2023-02-12 21:19] LABS: ALK PHOS 40 U/L (45-117)
[2023-02-12] MEDS ORDERED: ONDANSETRON 4 MG/2 ML VIAL IVPB ONE (21:48)
[2023-02-12] MEDS ORDERED: ONDANSETRON 4 MG/2 ML VIAL ONE (21:49)
[2023-02-12 23:05] VITALS: BP 123/68; PULSE 87; RESP 15; TEMP 97.9
== END 2023-02-12 23:49 | disposition home or self-care (01) ==
LOC: JER 20:14
PROC: 3E033GC Introduction of Other Therapeutic Substance into Peripheral Vein, Percutaneous Approach (ICD-10-PCS; principal; 2023-02-12)
DX: R55 Syncope and collapse (principal); R11.2 Nausea with vomiting, unspecified; R51.9 Headache, unspecified; T43.3X5A Adverse effect of phenothiazine antipsychotics and neuroleptics, initial encounter
CPT/HCPCS: 36415; 70450-TC; 80053; 82553; 82962; 83690; 83735; 84100; 84484; 85025; 93005; 93010; 99285-25

== ENCOUNTER 2023-02-15 11:22 | Observation (INO) | payer OTHER ==
[2023-02-15] MEDS ORDERED: LACTATED RINGERS SOLUTION 1000 ML INFUS.BAG IV ONE (12:05)
[2023-02-15] MEDS ORDERED: ACETAMINOPHEN 1000 MG/100 ML BAG IVPB ONE (12:06)
[2023-02-15] MEDS ORDERED: ONDANSETRON 4 MG/2 ML VIAL IVPUSH ONE (12:06)
[2023-02-15] MEDS ORDERED: ACETAMINOPHEN INJECTION 100 ML IVPB ONE (12:12)
[2023-02-15] MEDS ORDERED: ONDANSETRON 4 MG/2 ML VIAL ONE (12:12)
[2023-02-15 12:46] LABS: BASO % 0.7 % (0-2.0); EOS % 1.4 % (0-4.5); HEMATOCRIT 38.4 % (32.4-45.2); MCH 30.1 pg (25.7-33.7); MCHC 33.9 g/dl (32.0-36.0); MEAN PLT VOLUME 7.5 fl (7.5-11.1); MONO % 8.7 % (3.8-10.2); NEUT % 67.2 % (42.8-82.8); PLATELET COUNT 241 10^3/uL (134-434); RBC 4.32 M/mm3 (3.60-5.2); RDW 15.2 % (11.6-15.6); WHITE BLOOD COUNT 6.8 K/mm3 (4.0-10.0)
[2023-02-15 13:10] LABS: CHLORIDE 105 mmol/L (98-107); SODIUM 136 mmol/L (136-145)
[2023-02-15 13:13] LABS: ALBUMIN 3.3 g/dl (3.4-5.0); BLOOD UREA NITROGEN 15.1 mg/dL (7-18); CO2 29 mmol/L (21-32); GLUCOSE,RANDOM 90 mg/dL (74-106); LIPASE 238 U/L (73-393); MAGNESIUM 2.4 mg/dL (1.8-2.4)
[2023-02-15 13:15] LABS: CREATININE 1.2 mg/dL (0.55-1.3)
[2023-02-15 13:17] LABS: BILIRUBIN,TOTAL 0.6 mg/dL (0.2-1); TOT PROT 7.3 g/dl (6.4-8.2)
[2023-02-15 13:18] LABS: ALK PHOS 40 U/L (45-117)
[2023-02-15 13:20] LABS: ANION GAP 2 MMOL/L (8-16); POTASSIUM > 10.0 mmol/L (3.5-5.1); SGOT/AST 95 U/L (15-37); SGPT/ALT 29 U/L (13-61)
[2023-02-15 15:07] LABS: EPI CELLS >36 /uL (0-25.1); HYALINE CASTS 0 /uL (0-3.1); URINE APPEARANCE CLEAR; URINE BACTERIA 627 /uL (0-1359); URINE BILIRUBIN NEGATIVE (NEGATIVE); URINE COLOR YELLOW; URINE GLUCOSE (UA) NEGATIVE (NEGATIVE); URINE KETONE TRACE (NEGATIVE); URINE LEUK ESTERASE 1+ (NEGATIVE); URINE NITRITE NEGATIVE (NEGATIVE); URINE PROTEIN NEGATIVE (NEGATIVE); URINE RBC 19 /uL (0-23.9); URINE UROBILINOGEN 0.2 mg/dL (0.2-1.0); URINE WBC 50 /uL (0-25.8)
[2023-02-15] MEDS ORDERED: METOCLOPRAMIDE HCL INJECTION 10 MG/2 ML VIAL IVPUSH ONE (15:22)
[2023-02-15] MEDS ORDERED: CEFTRIAXONE 1 GM in DEXTROSE 5%-WATER - 100 ML IVPB ONE (15:23)
[2023-02-15] MEDS ORDERED: METOCLOPRAMIDE HCL INJECTION 10 MG/2 ML VIAL ONE (15:31)
[2023-02-15] MEDS ORDERED: CEFTRIAXONE 1 GM/50 ML BAG ONE (15:31)
[2023-02-15] MEDS ORDERED: SIMETHICONE 80 MG TAB.CHEW (FP) PO ONE (15:32)
[2023-02-15] MEDS ORDERED: SIMETHICONE 80 MG TAB.CHEW (FP) ONE (15:50)
[2023-02-15] MEDS ORDERED: ACETAMINOPHEN 1000 MG/100 ML BAG IVPB PRN (16:59)
[2023-02-15] MEDS: LACTATED RINGERS SOLUTION 1,000 ML IV SCH (17:44)
[2023-02-15] MEDS ORDERED: PANTOPRAZOLE SODIUM 40 MG VIAL ONE (17:49)
[2023-02-15] MEDS: PANTOPRAZOLE SODIUM 40 MG VIAL IVPUSH SCH (17:57)
[2023-02-15] MEDS: HEPARIN NA (PORCINE) 5,000 UNITS/ML 1ML VIAL SQ SCH (21:51)
[2023-02-15] MEDS: METOCLOPRAMIDE HCL INJECTION 10 MG/2 ML VIAL IVPUSH PRN (21:51)
[2023-02-16 00:58] VITALS: BMI 29.7
[2023-02-16] MEDS: LACTATED RINGERS SOLUTION 1,000 ML IV SCH (05:26)
[2023-02-16 09:24] LABS: BASO % 0.6 % (0-2.0); HEMATOCRIT 35.3 % (32.4-45.2); LYMPH % 29.6 % (8-40); MCH 30.3 pg (25.7-33.7); MCHC 34.1 g/dl (32.0-36.0); MEAN CELL VOLUME 89.1 fl (80-96); MEAN PLT VOLUME 7.7 fl (7.5-11.1); MONO % 8.3 % (3.8-10.2); NEUT % 58.5 % (42.8-82.8); PLATELET COUNT 208 10^3/uL (134-434); RBC 3.96 M/mm3 (3.60-5.2); RDW 14.8 % (11.6-15.6); WHITE BLOOD COUNT 5.4 K/mm3 (4.0-10.0)
[2023-02-16 09:36] LABS: POTASSIUM 3.2 mmol/L (3.5-5.1)
[2023-02-16 09:41] LABS: ALBUMIN 3.1 g/dl (3.4-5.0); BLOOD UREA NITROGEN 7.9 mg/dL (7-18); CALCIUM 8.4 mg/dL (8.5-10.1)
[2023-02-16 09:45] LABS: TOT PROT 5.9 g/dl (6.4-8.2)
[2023-02-16 09:46] LABS: BILIRUBIN,TOTAL 0.6 mg/dL (0.2-1)
[2023-02-16] MEDS: METOCLOPRAMIDE HCL INJECTION 10 MG/2 ML VIAL IVPUSH PRN ×2 (10:06→16:56)
[2023-02-16] MEDS: PANTOPRAZOLE SODIUM 40 MG VIAL IVPUSH SCH (10:06)
[2023-02-16] MEDS: HEPARIN NA (PORCINE) 5,000 UNITS/ML 1ML VIAL SQ SCH ×2 (10:07→22:25)
[2023-02-16] MEDS: D5-1/2NS+10 MEQ KCL - 10 MEQ/1,000 ML INFUS.BAG IV SCH (13:44)
[2023-02-16] MEDS: ACETAMINOPHEN 500 MG TABLET (FP) PO PRN (22:25)
[2023-02-17] MEDS: D5-1/2NS+10 MEQ KCL - 10 MEQ/1,000 ML INFUS.BAG IV SCH ×2 (00:32→12:19)
[2023-02-17] MEDS: METOCLOPRAMIDE HCL INJECTION 10 MG/2 ML VIAL IVPUSH PRN (06:55)
[2023-02-17] MEDS: HEPARIN NA (PORCINE) 5,000 UNITS/ML 1ML VIAL SQ SCH ×2 (10:18→22:58)
[2023-02-17] MEDS: PANTOPRAZOLE SODIUM 40 MG VIAL IVPUSH SCH (10:18)
[2023-02-17 12:16] LABS: BASO % 0.8 % (0-2.0); EOS % 2.4 % (0-4.5); HEMATOCRIT 39.2 % (32.4-45.2); LYMPH % 22.1 % (8-40); MCH 30.3 pg (25.7-33.7); MCHC 33.2 g/dl (32.0-36.0); MEAN CELL VOLUME 91.4 fl (80-96); MEAN PLT VOLUME 8.1 fl (7.5-11.1); NEUT % 65.7 % (42.8-82.8); PLATELET COUNT 254 10^3/uL (134-434); RBC 4.29 M/mm3 (3.60-5.2); RDW 14.5 % (11.6-15.6); WHITE BLOOD COUNT 6.9 K/mm3 (4.0-10.0)
[2023-02-17 12:34] LABS: POTASSIUM 3.7 mmol/L (3.5-5.1)
[2023-02-17 12:36] LABS: CALCIUM 8.7 mg/dL (8.5-10.1)
[2023-02-17 12:37] LABS: ALBUMIN 3.4 g/dl (3.4-5.0); BLOOD UREA NITROGEN 5.8 mg/dL (7-18)
[2023-02-17 12:40] LABS: CREATININE 0.9 mg/dL (0.55-1.3)
[2023-02-17 12:42] LABS: BILIRUBIN,TOTAL 0.5 mg/dL (0.2-1); TOT PROT 6.7 g/dl (6.4-8.2)
[2023-02-17] MEDS: SUCRALFATE 1 GM/10 ML UNIT DOSE CUPS PO SCH ×3 (14:09→22:58)
[2023-02-17] MEDS: ACETAMINOPHEN 500 MG TABLET (FP) PO PRN (22:58)
[2023-02-18] MEDS: METOCLOPRAMIDE HCL INJECTION 10 MG/2 ML VIAL IVPUSH PRN (05:37)
[2023-02-18 09:29] LABS: BASO % 0.7 % (0-2.0); EOS % 3.1 % (0-4.5); HEMATOCRIT 38.4 % (32.4-45.2); HEMOGLOBIN 12.5 GM/dL (10.7-15.3); LYMPH % 25.2 % (8-40); MCH 29.6 pg (25.7-33.7); MCHC 32.5 g/dl (32.0-36.0); MEAN CELL VOLUME 91.3 fl (80-96); MONO % 9.3 % (3.8-10.2); NEUT % 61.7 % (42.8-82.8); PLATELET COUNT 252 10^3/uL (134-434); RDW 14.7 % (11.6-15.6); WHITE BLOOD COUNT 6.1 K/mm3 (4.0-10.0)
[2023-02-18 09:46] LABS: POTASSIUM 3.7 mmol/L (3.5-5.1)
[2023-02-18 09:53] LABS: ALBUMIN 3.2 g/dl (3.4-5.0); CALCIUM 8.5 mg/dL (8.5-10.1)
[2023-02-18 09:58] LABS: BILIRUBIN,TOTAL 0.5 mg/dL (0.2-1); TOT PROT 6.6 g/dl (6.4-8.2)
[2023-02-18] MEDS: HEPARIN NA (PORCINE) 5,000 UNITS/ML 1ML VIAL SQ SCH (10:38)
[2023-02-18] MEDS: PANTOPRAZOLE SODIUM 40 MG VIAL IVPUSH SCH (10:38)
[2023-02-18 12:28] VITALS: BP 132/77; PULSE 74; RESP 18; TEMP 98.4
== END 2023-02-18 14:51 | disposition home or self-care (01) ==
LOC: JER 11:22 → JERBED 16:44 → J6S 20:29
PROVIDERS: ADMIT Internal Medicine; ATTEND Internal Medicine
PROC: 3E033NZ Introduction of Analgesics, Hypnotics, Sedatives into Peripheral Vein, Percutaneous Approach (ICD-10-PCS; principal; 2023-02-15)
PROC: 3E03329 Introduction of Other Anti-infective into Peripheral Vein, Percutaneous Approach (ICD-10-PCS; 2023-02-15)
PROC: 3E023GC Introduction of Other Therapeutic Substance into Muscle, Percutaneous Approach (ICD-10-PCS; 2023-02-15)
PROC: 3E0337Z Introduction of Electrolytic and Water Balance Substance into Peripheral Vein, Percutaneous Approach (ICD-10-PCS; 2023-02-15)
PROC: 3E0337Z Introduction of Electrolytic and Water Balance Substance into Peripheral Vein, Percutaneous Approach (ICD-10-PCS; 2023-02-15)
DX: K21.9 Gastro-esophageal reflux disease without esophagitis (principal); K90.0 Celiac disease; R10.13 Epigastric pain; M79.7 Fibromyalgia; E87.6 Hypokalemia; Z88.0 Allergy status to penicillin; Z88.2 Allergy status to sulfonamides; Z88.8 Allergy status to other drugs, medicaments and biological substances; Z87.891 Personal history of nicotine dependence
CPT/HCPCS: 36415; 71046-TC-FY; 74177-TC; 80048; 80053; 81003; 83516; 83690; 83735; 84132; 84484; 85025; 87086; 93005; 93010; 96361; 96365; 96372; 96375; 96376; 99285-25; G0378; J1644; Q9967